=== PATIENT | female | born 1960 | race Caucasian/White ===

== ENCOUNTER 2017-05-17 01:20 | Day surgery (SDC) | payer OTHER ==
[~2017-05-17 01:20] MED LIST: ASPI81CH PO; Adalat/Procardi20 MG PO; Amitriptyline H25 MG PO; B/P MED; CEPH500 PO; CLIN300 PO; FURO40 PO; Fish Oil 10001000 MG PO; HYDCOR2.5B TOP; LEVSOD50 PO; Naprosyn500 MG PO; PROP10 PO; Percocet 5-3251 EACH PO; TOPI25 PO; TOPI50 PO; Valium5 MG PO; [UNRECOGNIZED DRUG - REMARK]
== END 2017-05-17 23:09 | disposition home or self-care (01) ==
LOC: RAD 01:20 → MRI 15:00 → RAD 23:09
PROC: BP39ZZZ Magnetic Resonance Imaging (MRI) of Left Shoulder (ICD-10-PCS; principal; 2017-05-17)
DX: S43.492A Other sprain of left shoulder joint, initial encounter (principal); S46.002A Unspecified injury of muscle(s) and tendon(s) of the rotator cuff of left shoulder, initial encounter
CPT/HCPCS: 23350; 73222; 77002; A9577; Q9967

== ENCOUNTER 2017-06-13 08:13 | Day surgery (SDC) | payer OTHER ==
[~2017-06-13] VITALS: Ht 157.5 cm; Wt 86.5 kg
== END 2017-06-13 14:02 | disposition home or self-care (01) ==
LOC: ORSCSDS 08:13
PROVIDERS: Orthopaedic Surgery
PROC: 0LQ24ZZ Repair Left Shoulder Tendon, Percutaneous Endoscopic Approach (ICD-10-PCS; principal; 2017-06-13 10:45)
DX: S46.002A Unspecified injury of muscle(s) and tendon(s) of the rotator cuff of left shoulder, initial encounter (principal); Z87.891 Personal history of nicotine dependence; E03.9 Hypothyroidism, unspecified; E78.5 Hyperlipidemia, unspecified; Z79.899 Other long term (current) drug therapy
CPT/HCPCS: C1713; J0171; J0690; J1100; J2250; J2370; J2405; J3010; J7120

== ENCOUNTER 2018-08-21 08:48 | Day surgery (SDC) | payer OTHER ==
[~2018-08-21] VITALS: Ht 159 cm; Wt 81.7 kg
[~2018-08-21 08:48] MED LIST changes: +ATOR40TA PO; +CETI5 PO; +POTCHL20ER PO
--- NOTE | 2018-08-21 10:55 | NUR ---
Ambulatory in Day Surgery History, Chart, Medications and Allergies reviewed before start of procedure.Patient confirms NPO status and agrees with scheduled surgery. Patient reports completing Chlorhexadine shower X2 prior to admission to hospital.Surgical site prepped with 2% Chlorhexidine cloth wipe.NOSIN NASAL SWABS DONE
--- NOTE | 2018-08-21 13:11 | NUR ---
08/21/18 1311 Aric Godfrey INTERSCALENE BLOCK DONE BEFORE INDUCTION PER DR. KINSEY. TIME OUT COMPLETED.
--- NOTE | 2018-08-22 04:21 | NUR ---
SHIFT SUMMARY PT A&O X4 T/O SHIFT. POD# 1 L SEPIDEH-SHOULDER; DRESSING CDI. ICE TO SHOULDER PT TOLERATED. NWB LUE; JOYSLING IN PLACE; LIMITED ROM L HAND, PT WIGGLES FINGERS. TOUCH SENSE INTACT, PT REPORTS NUMBNESS TO LUE PRESEANT BUT IMPROVED OVER SHIFT; EXT PWD. PAIN MANAGED PER EMAR. SBA TO TOILET/ASSIST WITH LINES/CHORDS. SCD'S TO BLE'S. CALL LIGHT IN REACH; PT DEMONSTRATES USE. WCTM UNTIL REPORT TO DAY SHIFT RN.
[2018-08-22 04:36] LABS: Anion Gap 10 mmol/L (6-16); Blood Urea Nitrogen 15 mg/dL (8-24); Bun/Creatinine Ratio 19.7 (12.0-20.0); CO2, Blood 13 mmol/L (21-32); Calcium, Blood 8.4 mg/dL (8.5-10.1); Chloride, Blood 117 mmol/L (98-108); Creatinine, Blood 0.76 mg/dL (0.40-1.00); Glomerular Filtration Rate >60 (60-); Glucose, Blood 122 mg/dL (70-99); Potassium, Blood 4.4 mmol/L (3.5-5.5); Sodium, Blood 140 mmol/L (136-145)
[2018-08-22 05:19] LABS: BASOPHILS ABSOLUTE AUTO 0.02 K/mm3 (0.00-0.23); BASOPHILS PERCENT AUTO 0 % (0-2); EOSINOPHILS PERCENT AUTO 0 % (0-6); Hemoglobin 12.6 g/dL (11.5-16.0); IMMATURE GRAN ABSOLUTE AUTO 0.09 K/mm3 (0.00-0.10); IMMATURE GRAN PERCENT AUTO 1 % (0-1); LYMPHOCYTES PERCENT AUTO 8 % (21-46); MONOCYTES ABSOLUTE AUTO 0.92 K/mm3 (0.16-1.47); MONOCYTES PERCENT AUTO 6 % (4-13); Mean Corpuscular HGB 29.3 pg (26.0-34.0); Mean Corpuscular HGB Conc 31.5 g/dL (31.5-36.5); Mean Corpuscular Volume 93 fL (80-100); Mean Platelet Volume 9.8 fL (9.1-12.4); NEUTROPHILS ABSOLUTE AUTO 13.48 K/mm3 (1.96-9.15); NEUTROPHILS PERCENT AUTO 86 % (41-73); Platelet Count 277 K/mm3 (150-400); RDW Coefficient Variation 12.7 % (11.7-14.2); RDW Standard Deviation 42.8 fL (35.1-46.3); White Blood Cell Count 15.71 K/mm3 (4.00-11.30)
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
[2018-08-22] MEDS ORDERED: ASPI325 PO (14:30)
[2018-08-22] MEDS ORDERED: OXYC5 PO (14:33)
--- NOTE | 2018-08-22 15:02 | NUR ---
DISCHARGE PT PROVIDED WITH WRITTEN AND VERBAL DISCHARGE INSTRUCTIONS. SHE REPORTED UNDERSTANDING INSTRUCTIONS AFTER QUESTIONS WERE ANSWERED. DRESSINGS AND SCRIPTS PROVIDED. VSS. WILL MONITOR UNTIL REPORT TO ONCOMING RN.
--- NOTE | 2018-08-22 15:20 | NUR ---
DISCHARGE PT DISCHARGED AT APPROXIMATELY 1515. DISCHARGE INSTRUCTIONS PROVIDED BY SHEREEN GUARDADO.
== END 2018-08-22 15:02 | disposition home or self-care (01) ==
LOC: ORSCMMR 08:48 → ORD 11:15 → ORSCMMR 14:29 → SURS 14:29 → ORSCMMR 14:29 → SURS 15:50 → ORSCMMR 08-22 15:02 → SURS 08-22 15:02
PROVIDERS: Orthopaedic Surgery
PROC: 0RRK0J6 Replacement of Left Shoulder Joint with Synthetic Substitute, Humeral Surface, Open Approach (ICD-10-PCS; principal; 2018-08-21 11:15)
PROC: 0RPK04Z Removal of Internal Fixation Device from Left Shoulder Joint, Open Approach (ICD-10-PCS; principal; 2018-08-21 11:15)
DX: M25.812 Other specified joint disorders, left shoulder (principal); M12.812 Other specific arthropathies, not elsewhere classified, left shoulder; I10 Essential (primary) hypertension; J44.9 Chronic obstructive pulmonary disease, unspecified; E03.9 Hypothyroidism, unspecified; Z87.891 Personal history of nicotine dependence; Z79.899 Other long term (current) drug therapy; Z79.82 Long term (current) use of aspirin; E66.9 Obesity, unspecified; Z68.32 Body mass index [BMI] 32.0-32.9, adult
CPT/HCPCS: 36415; 73030; 80048; 83735; 85025; 88300; 97110; 97162; 97165; 97530; 97535; C1776; J0171; J0690; J0735; J1100; J1885; J2250; J2310; J2370; J2405; J2704; J2710; J2795; J3010; J7120

== ENCOUNTER → 2018-11-01 | Outpatient (CLI) | payer OTHER ==
[~2018-11-01] MED LIST changes: +ASPI325 PO; +OXYC5 PO
== END | disposition home or self-care (01) ==
LOC: LAB SHORT 16:30 → LAB EV 16:30
DX: L98.9 Disorder of the skin and subcutaneous tissue, unspecified (principal)
CPT/HCPCS: 87070; 87205; 87529

== ENCOUNTER 2020-05-29 09:47 | Inpatient (IN) | payer OTHER ==
[~2020-05-29] VITALS: Ht 154.9 cm; Wt 190.8 kg
[~2020-05-29 09:47] MED LIST changes: +ACET325 PO; -ASPI325 PO; +ASPI325EC PO; -ATOR40TA PO; +ATOR80 PO; +Aspirin EC81 MG PO; +LEVSOD25 PO; -LEVSOD50 PO
[2020-05-29 10:34] LABS: BASOPHILS ABSOLUTE AUTO 0.05 K/mm3 (0.00-0.23); BASOPHILS PERCENT AUTO 0 % (0-2); EOSINOPHILS PERCENT AUTO 1 % (0-6); Hematocrit 40.8 % (33.0-51.0); Hemoglobin 13.6 g/dL (11.5-16.0); IMMATURE GRAN ABSOLUTE AUTO 0.07 K/mm3 (0.00-0.10); IMMATURE GRAN PERCENT AUTO 0 % (0-1); LYMPHOCYTES ABSOLUTE AUTO 1.31 K/mm3 (0.84-5.20); LYMPHOCYTES PERCENT AUTO 7 % (21-46); MONOCYTES ABSOLUTE AUTO 1.53 K/mm3 (0.16-1.47); MONOCYTES PERCENT AUTO 9 % (4-13); Mean Corpuscular HGB 27.8 pg (26.0-34.0); Mean Corpuscular HGB Conc 33.3 g/dL (31.5-36.5); Mean Corpuscular Volume 83 fL (80-100); Mean Platelet Volume 9.8 fL (9.1-12.4); NEUTROPHILS ABSOLUTE AUTO 14.63 K/mm3 (1.96-9.15); NEUTROPHILS PERCENT AUTO 83 % (41-73); Platelet Count 441 K/mm3 (150-400); RDW Coefficient Variation 13.5 % (11.7-14.2); RDW Standard Deviation 41.7 fL (35.1-46.3); Red Blood Cell Count 4.89 M/mm3 (3.80-5.20); White Blood Cell Count 17.69 K/mm3 (4.00-11.30)
[2020-05-29 10:52] LABS: Alanine Aminotransfer (ALT/SGP 17 U/L (12-78); Albumin, Blood 3.3 g/dL (3.4-5.0); Albumin/Globulin Ratio 0.7 (0.8-1.8); Alk Phos 102 U/L (50-136); Anion Gap 5 mmol/L (6-16); Aspartate Aminotrans (AST/SGOT 13 U/L (12-37); Bilirubin, Total 0.8 mg/dL (0.1-1.0); Blood Urea Nitrogen 12 mg/dL (8-24); Bun/Creatinine Ratio 16.8 (12.0-20.0); CO2, Blood 26 mmol/L (21-32); Calcium, Blood 8.8 mg/dL (8.5-10.1); Chloride, Blood 104 mmol/L (98-108); Creatinine, Blood 0.72 mg/dL (0.40-1.00); Globulin, Blood 4.7 g/dL (2.2-4.0); Glomerular Filtration Rate >60 (60-); Glucose, Blood 141 mg/dL (70-99); Potassium, Blood 3.9 mmol/L (3.5-5.5); Sodium, Blood 135 mmol/L (136-145)
[2020-05-29 12:10] LABS: Appearance, Urine Clear (Clear); Bilirubin, Urine Neg (Neg); Blood, Urine 2+ (Neg); Color, Urine Yellow (P-Yellow); Glucose Qualitative, Urine Neg (Neg); Ketones, Urine Neg (Neg); Leukocyte Esterase, Urine 1+ (Neg); Nitrite, Urine Neg (Neg); Protein, Urine Neg (Neg); Source, Urine Clean Catch; Specific Gravity, Urine 1.015 (1.003-1.022); Urobilinogen, Urine NORM (Normal)
[2020-05-29 12:27] LABS: Bacteria Rare /hpf; Squamous Epithelial Cells Rare /hpf (Few)
[2020-05-29 12:28] LABS: Granular Casts 0-2 /lpf (0)
[2020-05-29] MEDS ORDERED: FURO40 PO (14:46)
[2020-05-29] MEDS ORDERED: NIFE60ER PO (14:46)
[2020-05-29 15:09] LABS: CHOL/HDL RATIO 3.7; Cholesterol 156 mg/dL (50-200); HDL Cholesterol 42 mg/dL (>39); LDL/HDL RATIO 2.3; Low Density Lipoprotein Chol 95 mg/dL (0-110); Triglycerides 94 mg/dL (30-160); Very Low Density Lipoprot Chol 18 mg/dL (6-32)
--- NOTE | 2020-05-29 15:09 | NUR ---
RECIEVED REPORT FROM KIESHA HALEY RN
--- NOTE | 2020-05-29 15:26 | NUR ---
PATIENT RE-REOUTED FROM ED TO MEDICAL FLOOR TO GO TO IMAGING FOR HIDA SCAN.
[2020-05-30 04:50] LABS: BASOPHILS ABSOLUTE AUTO 0.03 K/mm3 (0.00-0.23); BASOPHILS PERCENT AUTO 0 % (0-2); EOSINOPHILS ABSOLUTE AUTO 0.15 K/mm3 (0.00-0.68); EOSINOPHILS PERCENT AUTO 1 % (0-6); Hematocrit 36.6 % (33.0-51.0); Hemoglobin 11.8 g/dL (11.5-16.0); IMMATURE GRAN ABSOLUTE AUTO 0.03 K/mm3 (0.00-0.10); IMMATURE GRAN PERCENT AUTO 0 % (0-1); LYMPHOCYTES ABSOLUTE AUTO 1.13 K/mm3 (0.84-5.20); LYMPHOCYTES PERCENT AUTO 10 % (21-46); MONOCYTES ABSOLUTE AUTO 1.01 K/mm3 (0.16-1.47); MONOCYTES PERCENT AUTO 9 % (4-13); Mean Corpuscular HGB 27.3 pg (26.0-34.0); Mean Corpuscular HGB Conc 32.2 g/dL (31.5-36.5); Mean Corpuscular Volume 85 fL (80-100); Mean Platelet Volume 9.8 fL (9.1-12.4); NEUTROPHILS ABSOLUTE AUTO 9.38 K/mm3 (1.96-9.15); NEUTROPHILS PERCENT AUTO 80 % (41-73); Platelet Count 333 K/mm3 (150-400); RDW Coefficient Variation 13.5 % (11.7-14.2); RDW Standard Deviation 42.2 fL (35.1-46.3); Red Blood Cell Count 4.32 M/mm3 (3.80-5.20); White Blood Cell Count 11.73 K/mm3 (4.00-11.30)
[2020-05-30 05:09] LABS: Anion Gap 8 mmol/L (6-16); Blood Urea Nitrogen 8 mg/dL (8-24); Bun/Creatinine Ratio 13.1 (12.0-20.0); CO2, Blood 24 mmol/L (21-32); Calcium, Blood 8.3 mg/dL (8.5-10.1); Chloride, Blood 104 mmol/L (98-108); Creatinine, Blood 0.61 mg/dL (0.40-1.00); Glomerular Filtration Rate >60 (60-); Glucose, Blood 84 mg/dL (70-99); Potassium, Blood 3.2 mmol/L (3.5-5.5); Sodium, Blood 136 mmol/L (136-145)
--- NOTE | 2020-05-30 05:36 | NUR ---
SHIFT SUMMARY- PT. A&OX4, PLEASANT AND COOPERATIVE WITH CARE. INDEPENDENT IN ROOM. HAD COMPLAINTS OF ABD PAIN DURING THE NIGHT. MEDICATED 2X PER EMAR WITH GOOD EFFECT. APPEARED TO HAVE RESTED COMFORTABLY T/O THE NIGHT, NO APPARENT DISTRESS NOTED. VSS. CALL LIGHT WITHIN REACH AND SIDE RAILS UPX2. WILL CONT TO MONITOR.
--- NOTE | 2020-05-30 18:20 | NUR ---
PT QUITE PLEASANT TODAY. NO C/O PAIN. DAUGHTER IN TO VISIT TODAY. PT STATES IS HUNGRY, BUT WATER STILL HURTS ABD. PT IS PRESENTLY ONLY SIPPING WATER AND FEW ICE CHIPS. PT IS JOKING AND STATES IV FLUIDS MUST BE HER STEAK AND MASHED POTATOES. ALSO STATES FEELS SOME BETTER TODAY. SLOW IMPROVEMENT. SURGEON WAS IN THIS AFT AND STATES WILL LIKELY NOT NEED SURGICAL INTERVENTION. JUST REST. PT IS AMBULATING SELF TO BATHROOM. STATES IS STEADY AND CAPABLE. NO OTHER CONCERNS NOTED. BED IN LOW POSITION, CALL LITE IN REACH, CALLS APPROP
[2020-05-31 05:22] LABS: BASOPHILS ABSOLUTE AUTO 0.03 K/mm3 (0.00-0.23); BASOPHILS PERCENT AUTO 0 % (0-2); EOSINOPHILS ABSOLUTE AUTO 0.15 K/mm3 (0.00-0.68); EOSINOPHILS PERCENT AUTO 1 % (0-6); Hemoglobin 12.2 g/dL (11.5-16.0); IMMATURE GRAN ABSOLUTE AUTO 0.04 K/mm3 (0.00-0.10); IMMATURE GRAN PERCENT AUTO 0 % (0-1); LYMPHOCYTES ABSOLUTE AUTO 1.15 K/mm3 (0.84-5.20); LYMPHOCYTES PERCENT AUTO 10 % (21-46); MONOCYTES ABSOLUTE AUTO 1.03 K/mm3 (0.16-1.47); MONOCYTES PERCENT AUTO 9 % (4-13); Mean Corpuscular HGB 27.5 pg (26.0-34.0); Mean Corpuscular HGB Conc 32.1 g/dL (31.5-36.5); Mean Corpuscular Volume 86 fL (80-100); Mean Platelet Volume 9.9 fL (9.1-12.4); NEUTROPHILS ABSOLUTE AUTO 9.01 K/mm3 (1.96-9.15); NEUTROPHILS PERCENT AUTO 79 % (41-73); Platelet Count 336 K/mm3 (150-400); RDW Coefficient Variation 13.5 % (11.7-14.2); RDW Standard Deviation 42.5 fL (35.1-46.3); Red Blood Cell Count 4.43 M/mm3 (3.80-5.20); White Blood Cell Count 11.41 K/mm3 (4.00-11.30)
--- NOTE | 2020-05-31 05:37 | NUR ---
SHIFT SUMMARY- PT. C/O PAIN DURING THE NIGHT. MEDICATED PER EMAR WITH GOOD RELIEF. ALSO REPORTS HAVING MULTIPLE EPISODES OF DIARRHEA EARLY THIS AM. REMAINS ON ICE CHIPS AND SIPS OF WATER. NO OTHER NEEDS DURING THE NIGHT. SLEPT ON/OFF LAST NIGHT, VSS. CALL LIGHT WITHIN REACH, WILL CONT TO MONITOR.
[2020-05-31 05:58] LABS: Albumin, Blood 2.5 g/dL (3.4-5.0); Anion Gap 7 mmol/L (6-16); Blood Urea Nitrogen 6 mg/dL (8-24); Bun/Creatinine Ratio 10.7 (12.0-20.0); CO2, Blood 23 mmol/L (21-32); Calcium, Blood 8.7 mg/dL (8.5-10.1); Chloride, Blood 106 mmol/L (98-108); Creatinine, Blood 0.56 mg/dL (0.40-1.00); Glomerular Filtration Rate >60 (60-); Glucose, Blood 62 mg/dL (70-99); Phosphorus, Blood 2.5 mg/dL (2.5-4.9); Potassium, Blood 3.7 mmol/L (3.5-5.5); Sodium, Blood 136 mmol/L (136-145)
--- NOTE | 2020-05-31 09:30 | NUR ---
DR IN ROOM. STATES TO MOVE TO CLEAR LIQUID AND SEE IF TOLERATES.
--- NOTE | 2020-05-31 19:08 | NUR ---
PT QUITE PLEASNT TODAY. STATES HAS TOLERATED CLEAR LIQUID TODAY FAIRLY WELL. SOEM PAIN, BUT LESS. DID CUT FENTANYL IN HALF TO 12.5 MCG TODAY PER PT REQUEST R/T FEELING DIZZY AND WOOZY WITH 25 MCG DOSE. PT STATES DID WELL FOR PAIN COVERAGE AND FELT MUCH BETTER. REQUESTED PT TO ASK FOR HALF DOSE IF FEELS IT WILL WORK WELL. NO NEW CONCERNS NOTED TODAY. DID KHAVE DAUGHTER IN TO VISIT TODAY. BED IN LOW POSITION,C ALL LITE IN REACH, CALLS APROP
[2020-06-01 05:05] LABS: BASOPHILS ABSOLUTE AUTO 0.04 K/mm3 (0.00-0.23); BASOPHILS PERCENT AUTO 0 % (0-2); EOSINOPHILS ABSOLUTE AUTO 0.16 K/mm3 (0.00-0.68); EOSINOPHILS PERCENT AUTO 2 % (0-6); Hematocrit 38.1 % (33.0-51.0); Hemoglobin 12.4 g/dL (11.5-16.0); IMMATURE GRAN ABSOLUTE AUTO 0.03 K/mm3 (0.00-0.10); IMMATURE GRAN PERCENT AUTO 0 % (0-1); LYMPHOCYTES ABSOLUTE AUTO 1.49 K/mm3 (0.84-5.20); LYMPHOCYTES PERCENT AUTO 15 % (21-46); MONOCYTES ABSOLUTE AUTO 0.91 K/mm3 (0.16-1.47); MONOCYTES PERCENT AUTO 9 % (4-13); Mean Corpuscular HGB 27.6 pg (26.0-34.0); Mean Corpuscular HGB Conc 32.5 g/dL (31.5-36.5); Mean Corpuscular Volume 85 fL (80-100); Mean Platelet Volume 9.9 fL (9.1-12.4); NEUTROPHILS ABSOLUTE AUTO 7.42 K/mm3 (1.96-9.15); NEUTROPHILS PERCENT AUTO 74 % (41-73); Platelet Count 378 K/mm3 (150-400); RDW Coefficient Variation 13.6 % (11.7-14.2); RDW Standard Deviation 42.4 fL (35.1-46.3); White Blood Cell Count 10.05 K/mm3 (4.00-11.30)
--- NOTE | 2020-06-01 05:23 | NUR ---
SHIFT SUMMARY- NO ACUTE EVENTS OVERNIGHT. MEDICATED PT. FOR ABD PAIN MULTIPLE TIMES T/O THE NIGHT WITH GOOD EFFECT. PT. ON CL DIET, TOLERATING WELL. AMBULATES FREQUENTLY IN ROOM W/O DIFFICULTY. DENIED ANY OTHER NEEDS DURING THE NIGHT, VSS. CALL LIGHT WITHIN REACH AND SIDE RAILS UPX2. WILL CONT TO MONITOR.
--- NOTE | 2020-06-01 11:02 | NUR ---
OK TO CHANGE FENTANYL TO 12.5 -[address] STUART.
--- NOTE | 2020-06-01 14:04 | NUR ---
Patient is sitting up in bed and alert. Patient talks about her medical history, her current smyptoms and the plan going forward. Patient tells me that [facility] and that there are many things that she wishes could be better in her life. She tells me her many frustrations and also her drive to keep moving forward in life. I reinforce helpful attitudes and practices and provide therapeutic listening, pastoral counselor dormitory and prayer. Patietn responds well and shows signs of increased peace. Spiritual care will continue to remain available to patient and family.
--- NOTE | 2020-06-01 17:18 | NUR ---
ALERT. DIET SWITCHED TO FULL LIQUID AND TOLERATED FOR LUNCH. STS HAD SOME NAUSEA WHEN IN THE SHOWER AND WOULD LIKE TO STAY ON FULL LIQUID FOR DINNER. MEDICATED FOR PAIN WITH GOOD RESULTS. INDEPENDENT IN ROOM. TELE HAS BEEN SR.LR INFUSING AT 75 ML/HR. COOPERATIVE. PLEASANT. ABLE TO MAKE HER NEEDS KNOWN. POSSIBLE D'C TOMORROW. WCTM
--- NOTE | 2020-06-02 04:40 | NUR ---
PRINCIPAL GIFTS OFFICER SUMMARY NO ACUTE CHANGES THIS SHIFT. PT AAOX4 AND INDEPENDENT IN THE ROOM. DENIES NAUSEA BUT DOES STILL REPORT SOME ABD PAIN. MEDICATED WITH 25 MCG IV FENTANYL X2 THROUGH THE SHIFT WHICH PT STATES DOES HELP THE PAIN AND ALLOWS HER TO SLEEP. PT SEEMS NERVOUS ABOUT EATING ANYTHING BEYOND A FULL LIQUID DIET AT THIS POINT. VSS, WILL CONTINUE TO MONITOR.
[2020-06-02] MEDS ORDERED: ACET325 PO (11:40)
--- NOTE | 2020-06-02 12:21 | NUR ---
PT DISCHARGED AT 1215 WITH ALL PAPERWORK REVIEWED AND EDUCATIONAL MATERIAL SENT. PT TREATED FOR PAIN PER EMAR. INDEPENDENT IN ROOM NO DISTRESS NOTED. PT COLLECTED PERSONAL BELONINGS. ESCORTED OUT VIA WHEELCHAIR. DAUGHTER TO TRANSPORT HOME.
--- NOTE | 2020-06-02 12:53 | NUR ---
Patient tells me about her DC that will be soon. She then tells me about her father who has dementia, her son who hasn't spoken to her in 15 yrs and how her physical limitations have interfered with her being able to move forward in life. Patient talks about her spiritual journey and her struggle to find a advent that she feels comfortable in. I listen empathically, explore sources of value and meaning and provide emotional support, and prayer. Patient responds well and shows signs of empowerment. I also make suggestions about possible advent choices.
== END 2020-06-02 12:14 | disposition home or self-care (01) | DRG 439 ==
LOC: ER 09:47 → MEDS 13:57
PROVIDERS: Emergency Medicine; ADMIT Family Medicine
DX: K85.80 Other acute pancreatitis without necrosis or infection (principal); E87.1 Hypo-osmolality and hyponatremia; E87.6 Hypokalemia; E03.9 Hypothyroidism, unspecified; I10 Essential (primary) hypertension; E78.5 Hyperlipidemia, unspecified; E16.2 Hypoglycemia, unspecified; Z79.82 Long term (current) use of aspirin; Z87.891 Personal history of nicotine dependence
CPT/HCPCS: 36415; 74181; 76705; 78226; 80048; 80053; 80061; 80069; 81001; 83690; 84484; 85025; 87086; 93005; 93010; 96365; 96366; 99285-25; A9270; A9270-GY; A9537; J0696; J1170; J1650; J2543; J3010; J7030; J7120

== ENCOUNTER 2020-08-12 10:59 | Emergency (ER) | payer OTHER ==
[~2020-08-12] VITALS: Ht 154.9 cm; Wt 81.7 kg
[~2020-08-12 10:59] MED LIST changes: +NIFE60ER PO
[2020-08-12 12:15] LABS: BASOPHILS ABSOLUTE AUTO 0.04 K/mm3 (0.00-0.23); BASOPHILS PERCENT AUTO 0 % (0-2); EOSINOPHILS ABSOLUTE AUTO 0.14 K/mm3 (0.00-0.68); EOSINOPHILS PERCENT AUTO 1 % (0-6); Hematocrit 48.4 % (33.0-51.0); IMMATURE GRAN ABSOLUTE AUTO 0.02 K/mm3 (0.00-0.10); IMMATURE GRAN PERCENT AUTO 0 % (0-1); LYMPHOCYTES ABSOLUTE AUTO 1.23 K/mm3 (0.84-5.20); LYMPHOCYTES PERCENT AUTO 13 % (21-46); MONOCYTES ABSOLUTE AUTO 0.73 K/mm3 (0.16-1.47); MONOCYTES PERCENT AUTO 8 % (4-13); Mean Corpuscular HGB 26.7 pg (26.0-34.0); Mean Corpuscular Volume 86 fL (80-100); Mean Platelet Volume 9.8 fL (9.1-12.4); NEUTROPHILS ABSOLUTE AUTO 7.55 K/mm3 (1.96-9.15); NEUTROPHILS PERCENT AUTO 78 % (41-73); Platelet Count 500 K/mm3 (150-400); RDW Coefficient Variation 13.6 % (11.7-14.2); RDW Standard Deviation 43.5 fL (35.1-46.3); Red Blood Cell Count 5.61 M/mm3 (3.80-5.20); White Blood Cell Count 9.71 K/mm3 (4.00-11.30)
[2020-08-12 12:28] LABS: Alanine Aminotransfer (ALT/SGP 32 U/L (12-78); Albumin/Globulin Ratio 0.7 (0.8-1.8); Alk Phos 72 U/L (50-136); Anion Gap 6 mmol/L (6-16); Aspartate Aminotrans (AST/SGOT 24 U/L (12-37); Bilirubin, Total 0.3 mg/dL (0.1-1.0); Blood Urea Nitrogen 11 mg/dL (8-24); Bun/Creatinine Ratio 16.4 (12.0-20.0); CO2, Blood 24 mmol/L (21-32); Calcium, Blood 8.8 mg/dL (8.5-10.1); Chloride, Blood 111 mmol/L (98-108); Creatinine, Blood 0.67 mg/dL (0.40-1.00); Globulin, Blood 4.4 g/dL (2.2-4.0); Glomerular Filtration Rate >60 (60-); Glucose, Blood 142 mg/dL (70-99); Potassium, Blood 3.5 mmol/L (3.5-5.5); Sodium, Blood 141 mmol/L (136-145); Total Protein, Blood 7.4 g/dL (6.4-8.2)
[2020-08-12] MEDS ORDERED: DICY20 PO (14:04)
== END 2020-08-12 14:16 | disposition home or self-care (01) ==
LOC: ER 10:59
PROVIDERS: Physician Assistant
DX: R10.10 Upper abdominal pain, unspecified (principal); Z79.82 Long term (current) use of aspirin; Z79.899 Other long term (current) drug therapy; Z87.891 Personal history of nicotine dependence
CPT/HCPCS: 36415; 80053; 83690; 85025; 99283; A9270

== ENCOUNTER 2020-08-20 07:51 | Emergency (ER) | payer OTHER ==
[~2020-08-20] VITALS: Ht 154.9 cm; Wt 91.2 kg
[~2020-08-20 07:51] MED LIST changes: +DICY20 PO
[2020-08-20 08:25] LABS: BASOPHILS ABSOLUTE AUTO 0.06 K/mm3 (0.00-0.23); BASOPHILS PERCENT AUTO 0 % (0-2); EOSINOPHILS ABSOLUTE AUTO 0.11 K/mm3 (0.00-0.68); EOSINOPHILS PERCENT AUTO 1 % (0-6); Hematocrit 48.3 % (33.0-51.0); Hemoglobin 15.2 g/dL (11.5-16.0); IMMATURE GRAN ABSOLUTE AUTO 0.06 K/mm3 (0.00-0.10); IMMATURE GRAN PERCENT AUTO 0 % (0-1); LYMPHOCYTES ABSOLUTE AUTO 1.45 K/mm3 (0.84-5.20); LYMPHOCYTES PERCENT AUTO 10 % (21-46); MONOCYTES ABSOLUTE AUTO 1.21 K/mm3 (0.16-1.47); MONOCYTES PERCENT AUTO 8 % (4-13); Mean Corpuscular HGB Conc 31.5 g/dL (31.5-36.5); Mean Corpuscular Volume 86 fL (80-100); Mean Platelet Volume 9.4 fL (9.1-12.4); NEUTROPHILS ABSOLUTE AUTO 11.84 K/mm3 (1.96-9.15); NEUTROPHILS PERCENT AUTO 81 % (41-73); Platelet Count 762 K/mm3 (150-400); RDW Coefficient Variation 13.7 % (11.7-14.2); RDW Standard Deviation 43.5 fL (35.1-46.3); Red Blood Cell Count 5.63 M/mm3 (3.80-5.20); White Blood Cell Count 14.73 K/mm3 (4.00-11.30)
[2020-08-20 08:41] LABS: Alanine Aminotransfer (ALT/SGP 20 U/L (12-78); Albumin, Blood 2.9 g/dL (3.4-5.0); Albumin/Globulin Ratio 0.6 (0.8-1.8); Alk Phos 83 U/L (50-136); Anion Gap 6 mmol/L (6-16); Aspartate Aminotrans (AST/SGOT 17 U/L (12-37); Bilirubin, Total 0.4 mg/dL (0.1-1.0); Blood Urea Nitrogen 15 mg/dL (8-24); Bun/Creatinine Ratio 19.9 (12.0-20.0); CO2, Blood 23 mmol/L (21-32); Calcium, Blood 9.1 mg/dL (8.5-10.1); Chloride, Blood 105 mmol/L (98-108); Creatinine, Blood 0.75 mg/dL (0.40-1.00); Globulin, Blood 4.6 g/dL (2.2-4.0); Glomerular Filtration Rate >60 (60-); Glucose, Blood 99 mg/dL (70-99); Sodium, Blood 134 mmol/L (136-145); Total Protein, Blood 7.5 g/dL (6.4-8.2)
[2020-08-20 11:08] LABS: International Normalized Ratio 1.07; Prothrombin Time Results 11.5 Sec (9.7-11.5)
== END 2020-08-20 11:40 | disposition home or self-care (01) ==
LOC: ER 07:51
PROVIDERS: Physician Assistant
DX: R18.8 Other ascites (principal); R10.11 Right upper quadrant pain; I10 Essential (primary) hypertension; Z91.040 Latex allergy status; Z79.899 Other long term (current) drug therapy; Z79.82 Long term (current) use of aspirin; Z87.891 Personal history of nicotine dependence
CPT/HCPCS: 36415; 74177; 76705; 80053; 83690; 83880; 85025; 85610; 85730; 93005; 93010; 96361; 96374; 96375; 99284-25; J1170; J2405; J7030; Q9967

== ENCOUNTER 2020-08-21 15:46 | Inpatient (IN) | payer OTHER ==
[~2020-08-21] VITALS: Ht 154.9 cm; Wt 91.4 kg
[2020-08-21 20:01] LABS: BASOPHILS ABSOLUTE AUTO 0.02 K/mm3 (0.00-0.23); BASOPHILS PERCENT AUTO 0 % (0-2); EOSINOPHILS PERCENT AUTO 0 % (0-6); Hematocrit 45.1 % (33.0-51.0); Hemoglobin 14.2 g/dL (11.5-16.0); IMMATURE GRAN ABSOLUTE AUTO 0.06 K/mm3 (0.00-0.10); IMMATURE GRAN PERCENT AUTO 0 % (0-1); LYMPHOCYTES ABSOLUTE AUTO 1.06 K/mm3 (0.84-5.20); LYMPHOCYTES PERCENT AUTO 7 % (21-46); MONOCYTES ABSOLUTE AUTO 0.99 K/mm3 (0.16-1.47); MONOCYTES PERCENT AUTO 6 % (4-13); Mean Corpuscular HGB 26.6 pg (26.0-34.0); Mean Corpuscular HGB Conc 31.5 g/dL (31.5-36.5); Mean Corpuscular Volume 85 fL (80-100); Mean Platelet Volume 9.4 fL (9.1-12.4); NEUTROPHILS ABSOLUTE AUTO 13.72 K/mm3 (1.96-9.15); NEUTROPHILS PERCENT AUTO 87 % (41-73); Platelet Count 680 K/mm3 (150-400); RDW Coefficient Variation 13.9 % (11.7-14.2); Red Blood Cell Count 5.33 M/mm3 (3.80-5.20); White Blood Cell Count 15.85 K/mm3 (4.00-11.30)
[2020-08-21 20:20] LABS: Alanine Aminotransfer (ALT/SGP 16 U/L (12-78); Albumin, Blood 2.7 g/dL (3.4-5.0); Albumin/Globulin Ratio 0.6 (0.8-1.8); Alk Phos 78 U/L (50-136); Anion Gap 15 mmol/L (6-16); Aspartate Aminotrans (AST/SGOT 13 U/L (12-37); Bilirubin, Total 0.4 mg/dL (0.1-1.0); Blood Urea Nitrogen 15 mg/dL (8-24); Bun/Creatinine Ratio 18.9 (12.0-20.0); CO2, Blood 17 mmol/L (21-32); Calcium, Blood 9.2 mg/dL (8.5-10.1); Chloride, Blood 104 mmol/L (98-108); Creatinine, Blood 0.79 mg/dL (0.40-1.00); Globulin, Blood 4.8 g/dL (2.2-4.0); Glomerular Filtration Rate >60 (60-); Glucose, Blood 116 mg/dL (70-99); Potassium, Blood 4.5 mmol/L (3.5-5.5); Sodium, Blood 136 mmol/L (136-145); Total Protein, Blood 7.5 g/dL (6.4-8.2)
[2020-08-21 22:31] LABS: Source, Urine Clean Catch
[2020-08-21 22:34] LABS: Blood, Urine 1+ (Neg); Glucose Qualitative, Urine Neg (Neg); Ketones, Urine 4+ (Neg); Leukocyte Esterase, Urine 1+ (Neg); Nitrite, Urine Neg (Neg); Protein, Urine 2+ (Neg); Specific Gravity, Urine 1.025 (1.003-1.022); Urobilinogen, Urine NORM (Normal)
[2020-08-21 22:45] LABS: Appearance, Urine Hazy (Clear); Bilirubin, Urine 1+ (Neg); Color, Urine Yellow (P-Yellow)
[2020-08-21 22:46] LABS: Amorphous Light (0-Heavy); Bacteria Mod /hpf; Hyaline Casts 25-50 /lpf (0-2); Red Blood Cells, Urine 0-2 /hpf (0-2); Squamous Epithelial Cells Few /hpf (Few); White Blood Cells, Urine 25-50 /hpf (0-5)
[2020-08-21 23:17] LABS: Automated BF RBC Count 0.002 M/mm3 (0-0); Automated BF WBC Count 1.571 K/mm3 (0-999); Body Fluid WBC Count 1571 /mm3 (0-999)
[2020-08-21 23:48] LABS: Appearance, Body Fluid Cloudy (Clear); Color, Body Fluid Yellow (None-Yellow)
[2020-08-21 23:49] LABS: Total Cell Count, Body Fluid 100
[2020-08-22 00:42] LABS: Glucose, Body Fluid 83 mg/dL; Lactate Dehydrogenase, Body Fl 412 U/L
[2020-08-22 06:30] LABS: Alanine Aminotransfer (ALT/SGP 19 U/L (12-78); Albumin, Blood 2.4 g/dL (3.4-5.0); Albumin/Globulin Ratio 0.6 (0.8-1.8); Alk Phos 68 U/L (50-136); Anion Gap 10 mmol/L (6-16); Aspartate Aminotrans (AST/SGOT 12 U/L (12-37); Bilirubin, Total 0.3 mg/dL (0.1-1.0); Blood Urea Nitrogen 14 mg/dL (8-24); Bun/Creatinine Ratio 20.8 (12.0-20.0); CO2, Blood 21 mmol/L (21-32); Calcium, Blood 8.5 mg/dL (8.5-10.1); Chloride, Blood 107 mmol/L (98-108); Creatinine, Blood 0.67 mg/dL (0.40-1.00); Globulin, Blood 4.2 g/dL (2.2-4.0); Glomerular Filtration Rate >60 (60-); Glucose, Blood 121 mg/dL (70-99); Potassium, Blood 4.5 mmol/L (3.5-5.5); Sodium, Blood 138 mmol/L (136-145); Total Protein, Blood 6.6 g/dL (6.4-8.2)
--- NOTE | 2020-08-22 12:59 | NUR ---
PT ARRIVED TO ROOM PCU 4 AT ABOUT 1200. PT IS A/O X4, SBA IN ROOM. USING 3L O2 NC TO MAINAIN O2 SAT ABOVE 92%. PROVIDER IN TO SEE PT. PT UP TO BATHROOM WITH SBA.
--- NOTE | 2020-08-22 14:12 | NUR ---
Attempted a PC visit with pt as requested by nursing. Entered room and introduced myself. Pt has a visitor at bedside. Offered to come back at a better time to discuss advanced care planning and pt in agreement so she can visit. Will plan to return tomorrow to address advanced care planning.
[2020-08-22 16:25] LABS: Alpha Feto Protein, Tumor Mkr 2.1 ng/mL (0.0-8.0)
--- NOTE | 2020-08-22 17:02 | NUR ---
NOTIFIED PHYSICIAN OF HR 100'S WHILE RESTING, UP TO 130'S WHILE AMBULATING. NO NEW ORDERS. ALSO NOTIFIED OF SMALL AMNT COFFEE GROUND COLOR EMESIS.
--- NOTE | 2020-08-22 17:44 | NUR ---
SHIFT SUMMARY PT ADMITTED TODAY TO PCU. PT IS A/O X4, IND/SBA IN ROOM. SHE IS USING 3L O2 NC TO MAINTAIN O2 SAT ABOVE 92%. SHE DENIES SOB AT REST, BUT DOES C/O SOB WITH EXERTION. HR HAS BEEN TACHY; 90-100'S AT REST, UP TO 130'S-140'S WITH EXERTION; PROVIDER AWARE, TELE ON. PT HAS BEEN RESTING MOST OF THE DAY SINCE ADMIT. PLAN IS TO HAVE PARACENTESIS IN MORNING.
--- NOTE | 2020-08-22 19:22 | NUR ---
ASSUMED CARE. PATIENT LAYING IN BED, NO NEED REQUESRED. SEE [facility] FOR FULL SHIFT ASSESSMENT
[2020-08-23 02:05] LABS: Hematocrit 39.9 % (33.0-51.0); Hemoglobin 12.6 g/dL (11.5-16.0); Mean Corpuscular HGB 26.9 pg (26.0-34.0); Mean Corpuscular HGB Conc 31.6 g/dL (31.5-36.5); Mean Corpuscular Volume 85 fL (80-100); Mean Platelet Volume 9.3 fL (9.1-12.4); Platelet Count 550 K/mm3 (150-400); RDW Coefficient Variation 14.2 % (11.7-14.2); RDW Standard Deviation 44.2 fL (35.1-46.3); Red Blood Cell Count 4.68 M/mm3 (3.80-5.20); White Blood Cell Count 13.57 K/mm3 (4.00-11.30)
[2020-08-23 02:22] LABS: Albumin, Blood 2.2 g/dL (3.4-5.0); Anion Gap 7 mmol/L (6-16); Blood Urea Nitrogen 12 mg/dL (8-24); CHOL/HDL RATIO 3.7; CO2, Blood 23 mmol/L (21-32); Calcium, Blood 8.7 mg/dL (8.5-10.1); Chloride, Blood 109 mmol/L (98-108); Cholesterol 144 mg/dL (50-200); Creatinine, Blood 0.63 mg/dL (0.40-1.00); Glomerular Filtration Rate >60 (60-); Glucose, Blood 108 mg/dL (70-99); HDL Cholesterol 39 mg/dL (>39); LDL/HDL RATIO 1.9; Low Density Lipoprotein Chol 73 mg/dL (0-110); Phosphorus, Blood 2.6 mg/dL (2.5-4.9); Potassium, Blood 4.5 mmol/L (3.5-5.5); Sodium, Blood 139 mmol/L (136-145); Triglycerides 160 mg/dL (30-160); Very Low Density Lipoprot Chol 32 mg/dL (6-32)
[2020-08-23 08:13] LABS: Hematocrit 42.5 % (33.0-51.0); Hemoglobin 13.1 g/dL (11.5-16.0)
[2020-08-23 08:16] LABS: COMPLEMENT C3, SERUM 181 mg/dL (82-167); COMPLEMENT C4, SERUM 26 mg/dL (12-38); HBSAG SCREEN Negative (Negative); HEP A AB, IGM Negative (Negative); HEP B CORE AB, IGM Negative (Negative); HEP C VIRUS AB 0.2 (0.0-0.9)
--- NOTE | 2020-08-23 10:44 | NUR ---
Initial palliative care consult: Yajaira is a 59 year old with a history of hypothyroidism, HTN, HLD, pancreatitis with biliary sludge, migraines. She was admittd to [facility] on 08/22/20 for c/o abd pain, swelling, N/V for the past week. She has a history of ETOH, no ETOH use since 2012. She is currently living at the local long term, she has been there off and on since 2013. Her PCP is [facility]zane[facility]. She is scheduled for a paracentesis today. Her abd is very swollen, firm and tender to touch. She reports a 20 pound weight gain of the past several weeks. She has never had ascites like this before. She is awaiting a GI consult. She reports SOB from the abd distention and overall just being "uncomfortable." Explained the paracentesis procedure and that she may need to receive albumin afterwards depending on how much fluid is removed. Pt vertalizes understanding. She had an emesis earlier today. She reports that she gets a sudden burn and then vomits. No c/o nausea during my visit. Nursing requested a PC visit for Yajaira to discuss her code status. Discussed POLST form and options for care with Yajaira. She is very clear that she wishes to be a DNR with limited interventions. She would like to be an organ donor. She states that her dtr, Socorro, and her step-mom, Gisela, would be her alternate health care decision makers. She reports her father, Melvin, has dementia and isn't able to make any decisions for her. Left AD booklet on her bedside table after reviewing it with her. She reports her dtr will be in this afternoon and they will talk about her wishes. Encouraged Yajaira to ask nursing to contact PC if they need assistance with AD or have further questions. LM for Dr. Guzman re: pt's wishes to change code status to DNR and to sign the POLST form when she makes rounds today. Ann, pt's nurse, also updated on her decision of DNR. PC to follow up to make sure DNR order is placed. Will process POLST once signed by
[2020-08-23 13:04] LABS: Automated BF RBC Count 0.002 M/mm3 (0-0); Automated BF WBC Count 1.808 K/mm3 (0-999); Body Fluid WBC Count 1808 /mm3 (0-999)
[2020-08-23 13:13] LABS: Appearance, Body Fluid Hazy (Clear); Color, Body Fluid Yellow (None-Yellow)
[2020-08-23 13:21] LABS: Lactate Dehydrogenase, Body Fl 813 U/L
[2020-08-23 13:23] LABS: Albumin, Body Fluid 2.4 g/dL
[2020-08-23 13:24] LABS: Protein, Body Fluid 4.8 g/dL
[2020-08-23 13:28] LABS: Glucose, Body Fluid 89 mg/dL
[2020-08-23 13:31] LABS: RBC Count, Body Fluid 1008 /mm3 (0-0)
[2020-08-23 13:43] LABS: Total Cell Count, Body Fluid 100
[2020-08-23 14:12] LABS: Hematocrit 42.4 % (33.0-51.0); Hemoglobin 13.1 g/dL (11.5-16.0)
--- NOTE | 2020-08-23 17:42 | NUR ---
SHIFT SUMMARY PT IS ALERT AND ORIENTED. PT WAS ABLE TO SHOWER INDEPENDENTLY TODAY. PT HAS BEEN WEANED OFF OF 02 AND IS NOW ON RA. VS STABLE. PT ABLE TO USE THE BATHROOM INDEPENDENTLY. PT HAD A PARACENTESIS TODAY AND HAD 4L REMOVED BUT NO ALBUMIN REPLACEMENT. PT WAS VOMITTING THIS MORNING BUT IT HAS RESOLVED AFTER THE PARACENTESIS. PT HAS BEEN VISITING WITH HER DAUGHTER WHILE HAVING DINNER THIS EVENING
[2020-08-23 18:10] LABS: ANTI-DSDNA ANTIBODIES <1 IU/mL (0-9); RNP ANTIBODIES <0.2 AI (0.0-0.9); SJOGREN'S ANTI-SS-A <0.2 AI (0.0-0.9); SJOGREN'S ANTI-SS-B <0.2 AI (0.0-0.9); SMITH ANTIBODIES <0.2 AI (0.0-0.9)
[2020-08-24 04:15] LABS: Hematocrit 41.5 % (33.0-51.0); Hemoglobin 12.9 g/dL (11.5-16.0); Mean Corpuscular HGB 26.4 pg (26.0-34.0); Mean Corpuscular HGB Conc 31.1 g/dL (31.5-36.5); Mean Corpuscular Volume 85 fL (80-100); Mean Platelet Volume 9.7 fL (9.1-12.4); Platelet Count 579 K/mm3 (150-400); RDW Standard Deviation 43.4 fL (35.1-46.3); Red Blood Cell Count 4.89 M/mm3 (3.80-5.20); White Blood Cell Count 10.69 K/mm3 (4.00-11.30)
[2020-08-24 04:38] LABS: Alanine Aminotransfer (ALT/SGP 17 U/L (12-78); Albumin/Globulin Ratio 0.5 (0.8-1.8); Alk Phos 61 U/L (50-136); Anion Gap 4 mmol/L (6-16); Aspartate Aminotrans (AST/SGOT 23 U/L (12-37); Bilirubin, Total 0.2 mg/dL (0.1-1.0); Blood Urea Nitrogen 10 mg/dL (8-24); Bun/Creatinine Ratio 15.6 (12.0-20.0); CO2, Blood 27 mmol/L (21-32); Calcium, Blood 8.4 mg/dL (8.5-10.1); Chloride, Blood 108 mmol/L (98-108); Creatinine, Blood 0.64 mg/dL (0.40-1.00); Globulin, Blood 3.8 g/dL (2.2-4.0); Glomerular Filtration Rate >60 (60-); Glucose, Blood 112 mg/dL (70-99); Potassium, Blood 3.9 mmol/L (3.5-5.5); Sodium, Blood 139 mmol/L (136-145); Total Protein, Blood 5.8 g/dL (6.4-8.2)
--- NOTE | 2020-08-24 05:17 | NUR ---
SHIFT SUMMARY ASSUMED CARE OF PT AT 1900. PT IS A/OX4. HEART SOUNDS REGULAR, TELE SHOWS SINUS. LUNG SOUNDS CLEAR, PT REMIAINED ON RA DURING THE NIGHT, DID NOT COMPLAIN OF SOB. ABD IS SOFT BUT TENDER, PT STATES THAT SHE IS FEELING BETTER. PT WAS INDEPENDENT TO THE BATHROOM. CALL LIGHT IN REACH, BED IN LOWEST POSTION.
--- NOTE | 2020-08-24 12:10 | NUR ---
Fully signed and completed POLST provided to medical records for scanning into EMR.
--- NOTE | 2020-08-24 18:16 | NUR ---
SHIFT SUMMARY PT HAS BEEN INDEPENDENT IN THE ROOM TODAY. PT HAS HAD LOOSE STOOL TODAY THAT HAS BEEN A DARK GREEN COLOR. PT HAS A GI CONSULT IN PLACE. PT HAS NO LONGER HAD ANY COFFEE GROUND EMESIS SINCE THE PARACENTESIS YESTERDAY 08/23/20. PT HAS HAD SOME PAIN/SORENESS ON HER SIDE WHERE THE PARCENTESIS WAS COMPLETED YESTERDAY. OTHERWISE, PT HAS BEEN STABLE. PT HAS BEEN TAKEN OFF OF TELE AND CHANGED TO MEDICAL STATUS. PT IS RESTING IN BED AT THIS TIME
--- NOTE | 2020-08-24 19:48 | NUR ---
PT RESTING IN LOW SEMI FOWLERS POSITION IN BED, WATCHING TV. PT REPORTS SHE IS [place] IN HER LEFT EAR. PT'S ONLY COMPLAINT IS RIGHT SIDED ABDOMINAL PAIN WHEN SHE GETS UP OUT OF BED. PT DENIES HEADACHE, CHEST PAIN, NAUSEA OR EMESIS, SOB, OR NUMBNESS AND TINGLING. PT REPORTS SHE HAS HAD SEVERAL LOOSE STOOLS TODAY. PT'S URINE IS CLOUDY YELLOW. L AC IV FLUSHED WITHOUT DIFFICULTY. PT IS SCHEDULED FOR AN MRI WITHOUT CONTRAST IN AM - SEE ORDER. FLUIDS AT BEDSIDE. BED IN LOW POSITION. CALL LIGHT WITHIN REACH.
--- NOTE | 2020-08-24 22:24 | NUR ---
UPDATED PT, AND PLACED NOTE ON SIDE OF PT'S DOOR - PT IS ON CLEAR LIQUID DIET IN AM, THEN NPO.
--- NOTE | 2020-08-25 | NUR ---
CALLED [place], LAB - SHE WILL CHECK WITH PRESIDENT [employer] CEO [employer] TO SEE IF THEY CAN ADD AMYLASE, AND TRIGLYCERIDES TO YESTERDAY'S ASCITIES FLUID.
--- NOTE | 2020-08-25 00:10 | NUR ---
REPORT GIVEN TO [facility] - SURGICAL FLOOR.
--- NOTE | 2020-08-25 00:35 | NUR ---
PT TX FROM PCU 4. PT A/O, VSS. LUNGS CLEAR, DIM IN BASES. PT DENIES SOB, REP WOB IMPROVED SINCE PARACENTESIS 08/23. PT REP MILD ABD DISCOMFORT, DENIES CHANGES IN PAIN, ABD SOFT/NON TEMDER TO PALP. PT ORIENTED TO ROOM/CALL LIGHT. PT REQ TO GL TO SLEEP FOR NIGHT. WILL MONITOR AND TX PER ORDERS.
[2020-08-25 01:11] LABS: Amylase, Body Fluid 61 U/L; Triglycerides, Body Fluid 76 mg/dL
--- NOTE | 2020-08-25 06:16 | NUR ---
PT VSS, SATS >90% ON RA. PT IS NOTED TO BECOME SOB W/EXERTION, DENIES SOB AT REST. PT DENIED PAIN THIS AM, NO C/O N/V. PT INDEP IN ROOM. PLAN NPO AFTER BREAKFAST AND FOR FOR MRI THIS AM.
[2020-08-25 06:49] LABS: SARS-Cov-2 (COVID-19) PCR, MMC NEGATIVE (NEGATIVE)
--- NOTE | 2020-08-25 15:05 | NUR ---
[facility]
--- NOTE | 2020-08-25 15:23 | NUR ---
08/25/20 1523 Tevin Cam History, Chart, Medications and Allergies reviewed before start of procedure.MONITOR INTACT WITH CONTINUOUS PULSE OXIMETRY AND INTERMITTENT BP.3-LEAD EKG REVIEWED WITH PHYSICIAN PRIOR TO START OF PROCEDURE.O2 VIA N/C INTACT THROUGHOUT SEDATION/PROCEDURE. See Anesthesia record.
--- NOTE | 2020-08-25 16:45 | NUR ---
POST SCOPE ARRIVAL TO ROOM PT IS ABLE TO STAND W/ SBA TO WALK TO BED. 3L NC IN PLACE. AUDIBLE FAINT WHEEZES TO UPPER AIRWAY. R SIDE LUNG SOUNDS DIM IN BASE. L SIDE LUNG SOUNDS COURSE W/ EXP WHEEZE TO UPPER & LOWER LUNGS. NO DYSPNEA W/ EXC FROM AMBULATING TO BED. DENIES PAIN OR N/V.
--- NOTE | 2020-08-26 07:38 | NUR ---
PT VSS T/O NIGHT, 2LO2 NC PLACED WHEN PT SLEEPING. PT APPEARS MORE DYPSNEIC THIS AM. PT REP ABD MORE PAINFUL THIS AM, MED W/TYLENOL PER PT REQ. PT NPO FOR PLAN FOR REPEAT EGD THIS AM.
--- NOTE | 2020-08-26 16:55 | NUR ---
BROUGHT TO [facility] ADMISSION TO UNIT STARTED.
--- NOTE | 2020-08-26 17:50 | NUR ---
RETURNED TO ROOM. EGD BUMPED UNTIL TOMORROW.
--- NOTE | 2020-08-26 19:34 | NUR ---
SHIFT SUMMARY PT HAD PARACENTESIS, 2.5 L REMOVED. ALBUMIN GIVEN POST-PROCEDURE. WAS TAKEN TO DAY SURGERY FOR EGD AFTER BEING NPO ALL DAY, BUT PROCEDURE WAS POST PONED DUE TO EMERGENCY NEED FOR OR. CLEAR LQS GIVEN PER DR ALEJANDRO.
--- NOTE | 2020-08-27 04:49 | NUR ---
SHIFT SUMMARY PT RESTED WELL T/O NIGHT. AAOX4. PT REPORTING DISCOMFORT TO PARACENTESIS SITES DECREASED WITH X1 TYLENOL. NO NAUSEA/EMESIS. TOLERATING DIET, STRICT NPO AT 0900 R/T REPEAT EGD. INDEPENDENT IN ROOM, UP TO RESTROOM MUTLIPLE TIMES THIS SHIFT. NO ACUTE CHANGES OVER NIGHT. PT CURRENTLY RESTING WELL IN BED WITH CALL LIGHT IN REACH.
--- NOTE | 2020-08-27 14:35 | NUR ---
Spiritual care visit conducted. Patient is known to this fiction writer for nearly 30yrs. Patient is lying in bed and alert. Patient immediately tells me about her medical issues including a possible new diagnosis "some sort of stomach cancer." Patient is tearful and shares personal information. Patient also expresses her relief with the invitation of her parents to live with them while she is dealing with her health conditions as patient has been living at the [facility]. Patient has a Zoroastrianism raymundo that she leans into during difficult times. I provide gentle encouragement, therapeutic listening, companionship and prayer. Patient responds well and shows signs of increased hope and peace. I will continue to remain available to patient and family.
--- NOTE | 2020-08-27 15:30 | NUR ---
PT TRANSFERED TO [facility] FROM FLOOR VIA [facility]. History, Chart, Medications and Allergies reviewed before start of procedure. Lungs clear T/O to Auscultation. Patient confirms NPO status and agrees with scheduled surgery. Pre-Op teaching done. Pt verbalizes understanding.
--- NOTE | 2020-08-27 15:31 | NUR ---
PT LEFT FOR SURGERY AT 1520.
--- NOTE | 2020-08-27 15:59 | NUR ---
08/27/20 1559 Blas Branch See Anesthesia record PER DR DANG MONITOR INTACT WITH CONTINUOUS PULSE OXIMETRY AND INTERMITTENT BP. O2 VIA N/C INTACT THROUGHOUT SEDATION/PROCEDURE.
--- NOTE | 2020-08-27 17:09 | NUR ---
RECEIVED PT BACK FROM SURGERY AT AROUND 1700. PT WAS ABLE TO AMBULATE FROM THE GURNEY TO THE BATHROOM WITHOUT DIFFICULTY. PT PASSING GAS AND TOLERATING PO INTAKE. PT IS ALSO A/O.
--- NOTE | 2020-08-27 18:00 | NUR ---
SHIFT SUMMARY PT STATUS POST FOR EGD. GASTRIC ULCERS FOUND AND BIOPSIES TAKEN. PT TOLERATED PROCEDURE WELL AND IS AMBULATING TO THE BATHROOM WITH SBA AND TOLERATING PO INTAKE WELL. SLIGHTLY HYPERTENSIVE BUT CLOSE TO THE PT'S BASELINE. DYSPNEA ON EXERTION AND WHEEZES NOTED. WILL REPORT TO DEJA GUARDADO.
--- NOTE | 2020-08-28 04:37 | NUR ---
SHIFT SUMMARY PT RESTED WELL T/O NIGHT. AAOX4. ABD DISTENSION SLIGHTLY INCREASED FROM PREVIOUS SHIFT PER PT. ABD DISCOMFORT DECREASED WITH TYLENOL X1 THIS SHIFT. NO NAUSEA/EMESIS. TOLERATING SIPS WATER. INDEPENDENT IN ROOM. NO ACUTE CHANGES OVER NIGHT. PT CURRENTLY RESTING WELL IN BED WITH CALL LIGHT IN REACH.
[2020-08-28 16:09] LABS: CENTROMERE PATTERN >1:1280 (.)
--- NOTE | 2020-08-28 17:52 | NUR ---
SHIFT SUMMARY PT POD #1 FOR EGD. PT A/O X4; PLEASANT AND COOPERATIVE WITH CARE. IND IN THE ROOM. TREATED FOR PAIN X1 THIS SHIFT. REPORTS INCREASED ABD PAIN AND ABD HAS BECOME MORE DISTENDED THIS SHIFT. IV DC'D AND IV MEDICATIONS CHANGED TO PO. PT TO DC TOMORROW AND TO FOLLOW UP WITH DR. CHANDLER IN ONCOLOGY. VSS. WILL REPORT TO DEJA GUARDADO.
[2020-08-29 04:10] LABS: BASOPHILS ABSOLUTE AUTO 0.07 K/mm3 (0.00-0.23); BASOPHILS PERCENT AUTO 1 % (0-2); EOSINOPHILS PERCENT AUTO 2 % (0-6); Hematocrit 46.3 % (33.0-51.0); Hemoglobin 14.8 g/dL (11.5-16.0); IMMATURE GRAN ABSOLUTE AUTO 0.08 K/mm3 (0.00-0.10); IMMATURE GRAN PERCENT AUTO 1 % (0-1); LYMPHOCYTES ABSOLUTE AUTO 1.64 K/mm3 (0.84-5.20); LYMPHOCYTES PERCENT AUTO 13 % (21-46); MONOCYTES ABSOLUTE AUTO 1.29 K/mm3 (0.16-1.47); MONOCYTES PERCENT AUTO 10 % (4-13); Mean Corpuscular HGB 26.7 pg (26.0-34.0); Mean Corpuscular Volume 83 fL (80-100); Mean Platelet Volume 9.2 fL (9.1-12.4); NEUTROPHILS ABSOLUTE AUTO 9.32 K/mm3 (1.96-9.15); NEUTROPHILS PERCENT AUTO 73 % (41-73); Platelet Count 698 K/mm3 (150-400); RDW Coefficient Variation 13.9 % (11.7-14.2); RDW Standard Deviation 42.7 fL (35.1-46.3); Red Blood Cell Count 5.55 M/mm3 (3.80-5.20)
[2020-08-29 04:31] LABS: Alanine Aminotransfer (ALT/SGP 25 U/L (12-78); Albumin/Globulin Ratio 0.5 (0.8-1.8); Alk Phos 67 U/L (50-136); Anion Gap 5 mmol/L (6-16); Aspartate Aminotrans (AST/SGOT 23 U/L (12-37); Bilirubin, Total 0.2 mg/dL (0.1-1.0); Blood Urea Nitrogen 9 mg/dL (8-24); Bun/Creatinine Ratio 12.9 (12.0-20.0); CO2, Blood 29 mmol/L (21-32); Calcium, Blood 8.4 mg/dL (8.5-10.1); Chloride, Blood 105 mmol/L (98-108); Glomerular Filtration Rate >60 (60-); Glucose, Blood 105 mg/dL (70-99); Potassium, Blood 3.9 mmol/L (3.5-5.5); Sodium, Blood 139 mmol/L (136-145)
--- NOTE | 2020-08-29 04:40 | NUR ---
SHIFT SUMMARY: PT S/P EGD. A&O X4. VS WNL. PT C/O PRESSURE IN ABD AND MEDICATED ONCE WITH TYLENOL PER EMAR. PT INDEPENDENT IN ROOM. VOIDING WELL. TOLERATING PO & DENIES N/V. PLAN FOR POSSIBLE DISCHARGE TODAY AND FOR PT TO FOLLOW UP WITH DR. CHANDLER OUTPATIENT.
[2020-08-29] MEDS ORDERED: LACT10SY PO (11:37)
[2020-08-29] MEDS ORDERED: METO5A PO (11:39)
[2020-08-29] MEDS ORDERED: PANT40 PO (11:40)
[2020-08-29] MEDS ORDERED: SUCRALFATE PO (11:45)
[2020-08-29] MEDS ORDERED: ONDA4ODT MM (11:46)
--- NOTE | 2020-08-29 15:09 | NUR ---
DISCHARGE: PACKET PRINTED AND PT EDUCATED. IV ALREADY DC'D. MEDICATIONS FAXED TO [facility]. PT TO LEAVE UNIT WHEN RIDE HERE VIA WHEELCHAIR
--- NOTE | 2020-08-29 15:40 | NUR ---
PT LEFT UNIT AT 1530
== END 2020-08-29 15:30 | disposition home or self-care (01) | DRG 871 ==
LOC: ER 15:46 → ERHOLD 08-22 00:41 → SURS 08-22 00:41 → PCU 08-22 11:53 → SURS 08-25 00:35
PROVIDERS: Emergency Medicine; Family Medicine; Internal Medicine; Student in an Organized Health Care Education/Training Program; ADMIT Internal Medicine
PROC: 0W9G3ZX Drainage of Peritoneal Cavity, Percutaneous Approach, Diagnostic (ICD-10-PCS; 2020-08-22)
PROC: 0W9G3ZZ Drainage of Peritoneal Cavity, Percutaneous Approach (ICD-10-PCS; 2020-08-23)
PROC: 0W9G3ZZ Drainage of Peritoneal Cavity, Percutaneous Approach (ICD-10-PCS; 2020-08-26)
PROC: 0DB58ZX Excision of Esophagus, Via Natural or Artificial Opening Endoscopic, Diagnostic (ICD-10-PCS; principal; 2020-08-28)
PROC: 0DB68ZX Excision of Stomach, Via Natural or Artificial Opening Endoscopic, Diagnostic (ICD-10-PCS; 2020-08-28)
PROC: 0DJ08ZZ Inspection of Upper Intestinal Tract, Via Natural or Artificial Opening Endoscopic (ICD-10-PCS; 2020-08-28)
DX: A41.9 Sepsis, unspecified organism (principal); K65.2 Spontaneous bacterial peritonitis; J96.01 Acute respiratory failure with hypoxia; E87.2 Acidosis; K76.6 Portal hypertension; K25.3 Acute gastric ulcer without hemorrhage or perforation; R18.0 Malignant ascites; Z66 Do not resuscitate; Z20.822 Contact with and (suspected) exposure to COVID-19; G43.909 Migraine, unspecified, not intractable, without status migrainosus; H91.8X2 Other specified hearing loss, left ear; C80.1 Malignant (primary) neoplasm, unspecified; E03.9 Hypothyroidism, unspecified; E78.5 Hyperlipidemia, unspecified; I10 Essential (primary) hypertension; K74.60 Unspecified cirrhosis of liver; K20.90 Esophagitis, unspecified without bleeding; R13.10 Dysphagia, unspecified; K59.00 Constipation, unspecified; Z79.899 Other long term (current) drug therapy; Z91.040 Latex allergy status; Z87.891 Personal history of nicotine dependence; Z98.890 Other specified postprocedural states; Z79.82 Long term (current) use of aspirin
CPT/HCPCS: 36415; 49082; 49083; 71045; 71260; 74181; 80053; 80061; 80069; 80074; 81001; 82042; 82103; 82105; 82150; 82378; 82390; 82728; 82945; 83516; 83605; 83615; 83690; 83986; 84157; 84311; 84478; 85014; 85018; 85025; 85027; 86038; 86160; 86225; 86235; 86301; 86304; 87040; 87070; 87075; 87086; 87205; 87206; 88305; 88341; 88342; 89051; 94760; 94762; 96361-59; 96365-59; 96375-59; 99284-25; A9270; C9113; J0696; J0780; J1650; J2001; J2250; J2405; J2704; J2765; J3010; J7030; J7050; J7120; P9041; Q9967; U0004

== ENCOUNTER 2020-08-31 15:24 | Inpatient (IN) | payer MEDICARE, OTHER ==
[~2020-08-31] VITALS: Ht 154.9 cm; Wt 84.8 kg
[~2020-08-31 15:24] MED LIST changes: +LACT10SY PO; +METO5A PO; +ONDA4ODT MM; +PANT40 PO; +SUCRALFATE PO
[2020-08-31 16:52] LABS: BASOPHILS ABSOLUTE AUTO 0.06 K/mm3 (0.00-0.23); BASOPHILS PERCENT AUTO 0 % (0-2); EOSINOPHILS ABSOLUTE AUTO 0.03 K/mm3 (0.00-0.68); EOSINOPHILS PERCENT AUTO 0 % (0-6); Hematocrit 46.5 % (33.0-51.0); Hemoglobin 14.9 g/dL (11.5-16.0); IMMATURE GRAN ABSOLUTE AUTO 0.14 K/mm3 (0.00-0.10); IMMATURE GRAN PERCENT AUTO 1 % (0-1); LYMPHOCYTES ABSOLUTE AUTO 1.38 K/mm3 (0.84-5.20); LYMPHOCYTES PERCENT AUTO 7 % (21-46); MONOCYTES PERCENT AUTO 13 % (4-13); Mean Corpuscular HGB 26.3 pg (26.0-34.0); Mean Corpuscular Volume 82 fL (80-100); Mean Platelet Volume 9.7 fL (9.1-12.4); NEUTROPHILS ABSOLUTE AUTO 15.37 K/mm3 (1.96-9.15); NEUTROPHILS PERCENT AUTO 79 % (41-73); Platelet Count 827 K/mm3 (150-400); RDW Standard Deviation 41.9 fL (35.1-46.3); Red Blood Cell Count 5.66 M/mm3 (3.80-5.20); White Blood Cell Count 19.48 K/mm3 (4.00-11.30)
[2020-08-31 17:21] LABS: Alanine Aminotransfer (ALT/SGP 16 U/L (12-78); Albumin, Blood 2.3 g/dL (3.4-5.0); Albumin/Globulin Ratio 0.5 (0.8-1.8); Alk Phos 83 U/L (50-136); Anion Gap 10 mmol/L (6-16); Aspartate Aminotrans (AST/SGOT 19 U/L (12-37); Bilirubin, Total 0.4 mg/dL (0.1-1.0); Blood Urea Nitrogen 12 mg/dL (8-24); Bun/Creatinine Ratio 19.2 (12.0-20.0); CO2, Blood 20 mmol/L (21-32); Calcium, Blood 9.1 mg/dL (8.5-10.1); Chloride, Blood 106 mmol/L (98-108); Creatinine, Blood 0.63 mg/dL (0.40-1.00); Glomerular Filtration Rate >60 (60-); Glucose, Blood 109 mg/dL (70-99); Potassium, Blood 4.3 mmol/L (3.5-5.5); Sodium, Blood 136 mmol/L (136-145); Total Protein, Blood 7.3 g/dL (6.4-8.2)
[2020-08-31 21:20] LABS: Automated BF RBC Count 0.002 M/mm3 (0-0); Body Fluid WBC Count 3170 /mm3 (0-999)
[2020-08-31 21:41] LABS: Appearance, Body Fluid Hazy (Clear); Color, Body Fluid Yellow (None-Yellow); Total Cell Count, Body Fluid 100
--- NOTE | 2020-09-01 07:24 | NUR ---
SHIFT SUMMARY PT WAS A NEW ADMIT DURING THE NIGHT, ARRIVING ON THE FLOOR AT 0043. SHE WAS ADMITTED FOR BACTERIAL PERITONITIS. SHE IS A&O X 4, KNIK, SBA IN THE ROOM. VITAL SIGNS STABLE. SHE WAS MEDICATED THIS AM FOR A LOPEZ, AND REPORTED ABD CRAMPS. NO C/O NAUSEA OR SOB. PT RECEIVING NS @ 75 ML/HR. NO ACUTE CHANGES IN PT CONDITION NOTED SINCE ADMIT. REPORT GIVEN TO ONCOMING RN.
[2020-09-01 08:20] LABS: BASOPHILS ABSOLUTE AUTO 0.03 K/mm3 (0.00-0.23); BASOPHILS PERCENT AUTO 0 % (0-2); EOSINOPHILS ABSOLUTE AUTO 0.05 K/mm3 (0.00-0.68); EOSINOPHILS PERCENT AUTO 0 % (0-6); Hematocrit 37.6 % (33.0-51.0); IMMATURE GRAN PERCENT AUTO 1 % (0-1); LYMPHOCYTES ABSOLUTE AUTO 1.09 K/mm3 (0.84-5.20); LYMPHOCYTES PERCENT AUTO 9 % (21-46); MONOCYTES ABSOLUTE AUTO 1.76 K/mm3 (0.16-1.47); MONOCYTES PERCENT AUTO 14 % (4-13); Mean Corpuscular HGB 26.5 pg (26.0-34.0); Mean Corpuscular HGB Conc 31.9 g/dL (31.5-36.5); Mean Corpuscular Volume 83 fL (80-100); NEUTROPHILS ABSOLUTE AUTO 9.64 K/mm3 (1.96-9.15); NEUTROPHILS PERCENT AUTO 76 % (41-73); Platelet Count 539 K/mm3 (150-400); RDW Coefficient Variation 14.1 % (11.7-14.2); RDW Standard Deviation 42.9 fL (35.1-46.3); Red Blood Cell Count 4.52 M/mm3 (3.80-5.20); White Blood Cell Count 12.67 K/mm3 (4.00-11.30)
[2020-09-01 08:51] LABS: Alanine Aminotransfer (ALT/SGP 13 U/L (12-78); Albumin, Blood 2.3 g/dL (3.4-5.0); Albumin/Globulin Ratio 0.6 (0.8-1.8); Alk Phos 66 U/L (50-136); Anion Gap 6 mmol/L (6-16); Aspartate Aminotrans (AST/SGOT 8 U/L (12-37); Bilirubin, Total 0.4 mg/dL (0.1-1.0); Blood Urea Nitrogen 8 mg/dL (8-24); Bun/Creatinine Ratio 14.2 (12.0-20.0); CO2, Blood 26 mmol/L (21-32); Calcium, Blood 8.2 mg/dL (8.5-10.1); Chloride, Blood 105 mmol/L (98-108); Creatinine, Blood 0.57 mg/dL (0.40-1.00); Globulin, Blood 3.8 g/dL (2.2-4.0); Glomerular Filtration Rate >60 (60-); Glucose, Blood 94 mg/dL (70-99); Potassium, Blood 3.8 mmol/L (3.5-5.5); Sodium, Blood 137 mmol/L (136-145); Total Protein, Blood 6.1 g/dL (6.4-8.2)
--- NOTE | 2020-09-01 13:07 | NUR ---
Spiritual care visit conducted. Patient is lying in bed and immediately tells me about how scared she is. She says that her last visit (a week or so age) she was diagnosed with cancer and that more areas of cancer where yesterday. She also talked about the painful procedure that was done and that she hopes to be able to see an oncologist soon so she could know what she is dealing with. Patient also very unsure about her livig arrangements. [facility] and then her mother invited her to live with her and her father but there were family unit complictions that made that living situation more work than it is worth for her. I provide gentle housing counselor and prayer. Patient responds well and displays evidence of increased peace. Spiritual care will remain available as patient is assisted with the emotional/spiritual aspects of living with disease.
--- NOTE | 2020-09-01 17:17 | NUR ---
SHIFT SUMMARY PATIENT REPORTS ABDOMINAL PAIN BUT HAS DECLINED PAIN MEDICATION THUS FAR THIS SHIFT. DENIES NAUSEA AND SHORTNESS OF BREATH. UP SBA TO BR. DR. CHANDLER CONSULTED, NEW ORDERS FOR SURGICAL CONSULT FOR MEDIPORT PLACEMENT TO BEGIN CHEMO. PATIENT'S MOTHER VISITED THIS AFTERNOON. HOLD BLOODTHINNERS FOR PROCEDURE TOMORROW. PARACENTESIS POSTPONED UNTIL TOMORROW DUE TO LOVENOX ADMINISTRATION THIS AM. PALLIATIVE AND SPIRITUAL CARE MET WITH PATIENT TODAY FOR SUPPORT REGARDING HER NEW CANCER DIAGNOSIS.
--- NOTE | 2020-09-01 18:29 | NUR ---
Initial palliative visit made today. Pt is aleart and oriented, pleasand and oriented. She smiles and laughs often throughout our visit. She tells me she was just told this am she has stage 4 cancer. She states she feels afraid, maybe a little about dying, and also leaving her family. [facility], but planning to move in with her stepmom upon discharge from the hospital. She is having a port placed tomorrow. Will see her again tomorrow, hopeful to have a more in depth converation then.
[2020-09-02 01:18] LABS: SARS-Cov-2 (COVID-19) PCR, MMC NEGATIVE (NEGATIVE)
--- NOTE | 2020-09-02 04:56 | NUR ---
SHIFT SUMMARY ASSUMED CARE OF PT AT 1900. PT IS A/OX4. HEART SOUNDS REGULAR, TELE MONITOR SAID PT BECAME TACKY INTO THE 130S WHEN SHE GOT UP TO THE BATHROOM. LUNG SOUNDS ARE SEVERLY DIMINISHED IN THE BASES. ABD IS DISTENDED AND FIRM, PT COMPLAINS OF FEELING BLOATED. PT WAS CONTIENENT TO THE BATHROOM. PT HAS BEEN NPO SINCE MIDNIGHT. CALL LIGHT IN REACH, BED IN LOWEST POSITON.
[2020-09-02 05:46] LABS: Hematocrit 41.3 % (33.0-51.0); Mean Corpuscular HGB 26.1 pg (26.0-34.0); Mean Corpuscular HGB Conc 31.5 g/dL (31.5-36.5); Mean Corpuscular Volume 83 fL (80-100); Platelet Count 544 K/mm3 (150-400); RDW Coefficient Variation 14.2 % (11.7-14.2); RDW Standard Deviation 42.4 fL (35.1-46.3); Red Blood Cell Count 4.98 M/mm3 (3.80-5.20); White Blood Cell Count 13.82 K/mm3 (4.00-11.30)
[2020-09-02 06:28] LABS: Alanine Aminotransfer (ALT/SGP 10 U/L (12-78); Albumin, Blood 2.1 g/dL (3.4-5.0); Albumin/Globulin Ratio 0.5 (0.8-1.8); Alk Phos 70 U/L (50-136); Anion Gap 9 mmol/L (6-16); Aspartate Aminotrans (AST/SGOT 5 U/L (12-37); Bilirubin, Total 0.3 mg/dL (0.1-1.0); Blood Urea Nitrogen 5 mg/dL (8-24); Bun/Creatinine Ratio 9.5 (12.0-20.0); CO2, Blood 22 mmol/L (21-32); Calcium, Blood 8.4 mg/dL (8.5-10.1); Chloride, Blood 107 mmol/L (98-108); Creatinine, Blood 0.52 mg/dL (0.40-1.00); Globulin, Blood 3.9 g/dL (2.2-4.0); Glomerular Filtration Rate >60 (60-); Glucose, Blood 108 mg/dL (70-99); Potassium, Blood 3.6 mmol/L (3.5-5.5); Sodium, Blood 138 mmol/L (136-145)
--- NOTE | 2020-09-02 10:56 | NUR ---
TRANSFER TO PCU PATIENT TRANSFERED TO PCU AFTER MEDIPORT INSERTION PROCEDURE. REPORT BUCK FLEMING RN.
--- NOTE | 2020-09-02 12:08 | NUR ---
NURSING PCU DAYSHIFT: Assumed care of pt at approx 1020. Arrived from PACU via gurney accompanied by RN and RT. A/O, pleasant, cooperative w/care, mildly TLINGIT & HAIDA. Skin fragile though intact w/mild scattered bruising, new mediport to RCW w/sterile dressing in place C/O 08/15 abd pain r/t distention. General weakness though able to stand/xfer w/SBA. Tele in place, ST 120's, no c/o CP/pressure, no noted edema, pulses palp. L/S w/fine bibasilar crackles, O2 stat low 90's on 6L NC, respirations shallow and rapid, dyspnea w/minimal exertion. Abd distended/firm, tender w/mild palpitation, BT+, voids w/o difficulty per pt. PIV x1, LR infusing at time of arrival from PACU. Pt denies any current needs or questions regarding plan of care. Update provided to PMD. Spoke w/chemo RN for administration this afternoon. No s/s of acute distress, report given to peer RN to assume care, call light in reach.
--- NOTE | 2020-09-02 12:42 | NUR ---
ASSUMED PATIENT CARE. PATIET ALERT AND ORIENTED, COOPERATIVE WITH CARE. THIS RN AGREES WITH PREVIOUS SHIFT ASSESSMENT BY BERNADETTE RN. PT ON NASAL CANNULA, ABLE TO TITRATE DOWN TO 2 L. NO SIGNS OF ACUTE DISTRESS, WCTM.
--- NOTE | 2020-09-02 15:44 | NUR ---
Spiritual care visit conducted. Patient tells me about how difficult the installation of the mediport was and her concerns about her upcoming procedures. Patient is tearful and gets increasingly emotional when she shares about the family unit complications. Patient talks about and dying and the magda she anticipates having at the reunion in [facility] when she sees her the loved ones that have gone before her (according to patient's belief system). I normalize patient's fears and emotions and provide gentle hiv counselor, anxiety containment and prayer. Patient responds well and, at least for the moment, has an elevated mood and is able to smile and joke around. I will continue to remain available to patient and family.
--- NOTE | 2020-09-02 16:11 | NUR ---
REPORT GIVEN TO BERNADETTE GUARDADO.
--- NOTE | 2020-09-02 17:08 | NUR ---
NURSING PCU DAYSHIFT SUMMARY: No significant changes t/o the shift. Pt to u/s for paracentesis, 3.3L removed, albumin ordered to infuse post para. Mediport site remains stable, cleared by surgeon that port okay to use for chemo as ordered. Chemo RN currently at bedside for port access and IV chemo administration. PMD updated on pt condition. Pt changed to medical status w/o tele, awaiting bed assignment. Pt denies any current needs or questions regarding plan of care. Cont to monitor until rpt is given to NOC RN.
[2020-09-03 03:47] LABS: BASOPHILS ABSOLUTE AUTO 0.02 K/mm3 (0.00-0.23); BASOPHILS PERCENT AUTO 0 % (0-2); EOSINOPHILS PERCENT AUTO 0 % (0-6); Hematocrit 37.9 % (33.0-51.0); Hemoglobin 11.9 g/dL (11.5-16.0); IMMATURE GRAN PERCENT AUTO 1 % (0-1); LYMPHOCYTES ABSOLUTE AUTO 0.64 K/mm3 (0.84-5.20); LYMPHOCYTES PERCENT AUTO 5 % (21-46); MONOCYTES ABSOLUTE AUTO 0.29 K/mm3 (0.16-1.47); MONOCYTES PERCENT AUTO 2 % (4-13); Mean Corpuscular HGB 25.9 pg (26.0-34.0); Mean Corpuscular HGB Conc 31.4 g/dL (31.5-36.5); Mean Corpuscular Volume 83 fL (80-100); Mean Platelet Volume 9.8 fL (9.1-12.4); NEUTROPHILS ABSOLUTE AUTO 13.32 K/mm3 (1.96-9.15); NEUTROPHILS PERCENT AUTO 93 % (41-73); Platelet Count 556 K/mm3 (150-400); RDW Coefficient Variation 14.2 % (11.7-14.2); RDW Standard Deviation 43.1 fL (35.1-46.3); Red Blood Cell Count 4.59 M/mm3 (3.80-5.20); White Blood Cell Count 14.37 K/mm3 (4.00-11.30)
[2020-09-03 04:10] LABS: Alanine Aminotransfer (ALT/SGP 11 U/L (12-78); Albumin, Blood 2.3 g/dL (3.4-5.0); Albumin/Globulin Ratio 0.7 (0.8-1.8); Alk Phos 61 U/L (50-136); Anion Gap 5 mmol/L (6-16); Aspartate Aminotrans (AST/SGOT 9 U/L (12-37); Bilirubin, Total 0.2 mg/dL (0.1-1.0); Blood Urea Nitrogen 4 mg/dL (8-24); Bun/Creatinine Ratio 10.5 (12.0-20.0); CO2, Blood 25 mmol/L (21-32); Calcium, Blood 7.9 mg/dL (8.5-10.1); Chloride, Blood 109 mmol/L (98-108); Creatinine, Blood 0.38 mg/dL (0.40-1.00); Globulin, Blood 3.4 g/dL (2.2-4.0); Glomerular Filtration Rate >60 (60-); Glucose, Blood 166 mg/dL (70-99); Potassium, Blood 3.6 mmol/L (3.5-5.5); Sodium, Blood 139 mmol/L (136-145); Total Protein, Blood 5.7 g/dL (6.4-8.2)
--- NOTE | 2020-09-03 05:54 | NUR ---
LARD RENDERER SUMMARY PT IS AXO X4. PT HAS MAINTAINED O2 SATS >92% ON 2L VIA NC THIS SHIFT. BP WNL AND STABLE. PT HAS REMIANED AFEBRILE WITH A PEAK TEMP OF 98.1. PT HAS DENIED ANY NAUSEA OR STOMACH PAIN THIS SHIFT. WILL REPORT TO ONCOMING RN.
--- NOTE | 2020-09-03 11:53 | NUR ---
Spiritual care visit conducted. Patient is resting but easily awakens to the sound of her name. Patient talks about how eventful her day was yesterday and shares about how overwhelming it all is. She tells me that she is unclear whether she had Chemotherapy yesterday but she says, "I think so." She tells me her concerns about living with her parents (father and step-mother) but ends her thought by saying that she really does not have any other option. I provide therapeutic listening, companionship and prayer. Patient responds well and shows signs of elevated hope.
[2020-09-03] MEDS ORDERED: ZYRTEC10 M1 PO (17:07)
[2020-09-03] MEDS ORDERED: CEFD300 PO (17:09)
[2020-09-03] MEDS ORDERED: Percocet 5-3251 EACH PO (17:09)
--- NOTE | 2020-09-03 18:13 | NUR ---
PT'S MEDIPORT DEACCESSED WITH HEPARIN FLUSH. NO ACTIVE BLEEDING FROM SITE. PT EXPRESSED UNDERSTANDING OF NEW MEDICATION AND D/C MEDICATION REGIMEN BUT STST THAT SHE WILL NOT BE FILLING HER RX UNTIL TOMORROW
== END 2020-09-03 17:58 | disposition home or self-care (01) | DRG 356 ==
LOC: ER 15:24 → MEDS 23:06 → ERHOLD 23:06 → MEDS 09-01 00:42 → PCU 09-02 10:13
PROVIDERS: Emergency Medicine; Internal Medicine; Physician Assistant; Surgery; ADMIT Internal Medicine
PROC: 0W9G3ZZ Drainage of Peritoneal Cavity, Percutaneous Approach (ICD-10-PCS; 2020-09-02)
PROC: 0JH60WZ Insertion of Totally Implantable Vascular Access Device into Chest Subcutaneous Tissue and Fascia, Open Approach (ICD-10-PCS; 2020-09-02)
PROC: 02HV33Z Insertion of Infusion Device into Superior Vena Cava, Percutaneous Approach (ICD-10-PCS; 2020-09-02)
PROC: 3E03305 Introduction of Other Antineoplastic into Peripheral Vein, Percutaneous Approach (ICD-10-PCS; principal; 2020-09-02 07:30)
DX: C78.6 Secondary malignant neoplasm of retroperitoneum and peritoneum (principal); K65.2 Spontaneous bacterial peritonitis; J96.01 Acute respiratory failure with hypoxia; R18.0 Malignant ascites; C53.0 Malignant neoplasm of endocervix; K25.9 Gastric ulcer, unspecified as acute or chronic, without hemorrhage or perforation; Z20.822 Contact with and (suspected) exposure to COVID-19; I10 Essential (primary) hypertension; E78.5 Hyperlipidemia, unspecified; E03.9 Hypothyroidism, unspecified; G43.909 Migraine, unspecified, not intractable, without status migrainosus; H91.92 Unspecified hearing loss, left ear; K20.90 Esophagitis, unspecified without bleeding; Z59.0 Homelessness; Z98.890 Other specified postprocedural states; Z91.040 Latex allergy status; Z79.82 Long term (current) use of aspirin; Z79.899 Other long term (current) drug therapy; Z87.891 Personal history of nicotine dependence
CPT/HCPCS: 36415; 49083; 77001; 80053; 83690; 83735; 85025; 85027; 87070; 87075; 87205; 89051; 94660; 94761; 94762; 96365-59; 96372; 96375-59; 99284-25; A9270; C1788; J0696; J1100; J1642; J1650; J2250; J2270; J2370; J2405; J2704; J3010; J7030; J7050; J7060; J7120; J9045; J9267; P9046; U0004

== ENCOUNTER 2021-01-18 07:51 | Day surgery (SDC) | payer MEDICARE, OTHER ==
[~2021-01-18] VITALS: Ht 154.9 cm; Wt 76.9 kg
[~2021-01-18 07:51] MED LIST changes: +CEFD300 PO; +ZYRTEC10 M1 PO
== END 2021-01-18 10:10 | disposition home or self-care (01) ==
LOC: ORSCSDS 07:51
PROVIDERS: Student in an Organized Health Care Education/Training Program
PROC: 0DB48ZX Excision of Esophagogastric Junction, Via Natural or Artificial Opening Endoscopic, Diagnostic (ICD-10-PCS; principal; 2021-01-18 09:15)
PROC: 0DB98ZX Excision of Duodenum, Via Natural or Artificial Opening Endoscopic, Diagnostic (ICD-10-PCS; principal; 2021-01-18 09:15)
PROC: 0DB68ZX Excision of Stomach, Via Natural or Artificial Opening Endoscopic, Diagnostic (ICD-10-PCS; principal; 2021-01-18 09:15)
DX: R10.12 Left upper quadrant pain (principal); K27.9 Peptic ulcer, site unspecified, unspecified as acute or chronic, without hemorrhage or perforation; K31.7 Polyp of stomach and duodenum; I10 Essential (primary) hypertension; E78.5 Hyperlipidemia, unspecified; Z79.899 Other long term (current) drug therapy
CPT/HCPCS: 88305; 88342; J2704; J7120

== ENCOUNTER 2021-03-15 19:27 | Inpatient (IN) | payer MEDICARE, OTHER ==
[~2021-03-15] VITALS: Ht 157.5 cm; Wt 75.7 kg
[2021-03-15 20:02] LABS: BASOPHILS ABSOLUTE AUTO 0.04 K/mm3 (0.00-0.23); BASOPHILS PERCENT AUTO 0 % (0-2); EOSINOPHILS ABSOLUTE AUTO 0.16 K/mm3 (0.00-0.68); EOSINOPHILS PERCENT AUTO 1 % (0-6); Hematocrit 33.9 % (33.0-51.0); Hemoglobin 10.3 g/dL (11.5-16.0); IMMATURE GRAN ABSOLUTE AUTO 0.06 K/mm3 (0.00-0.10); IMMATURE GRAN PERCENT AUTO 1 % (0-1); LYMPHOCYTES ABSOLUTE AUTO 2.86 K/mm3 (0.84-5.20); LYMPHOCYTES PERCENT AUTO 22 % (21-46); MONOCYTES ABSOLUTE AUTO 1.22 K/mm3 (0.16-1.47); MONOCYTES PERCENT AUTO 10 % (4-13); Mean Corpuscular HGB 27.2 pg (26.0-34.0); Mean Corpuscular HGB Conc 30.4 g/dL (31.5-36.5); Mean Corpuscular Volume 90 fL (80-100); Mean Platelet Volume 9.5 fL (9.1-12.4); NEUTROPHILS ABSOLUTE AUTO 8.46 K/mm3 (1.96-9.15); NEUTROPHILS PERCENT AUTO 66 % (41-73); Platelet Count 459 K/mm3 (150-400); RDW Coefficient Variation 15.4 % (11.7-14.2); RDW Standard Deviation 50.8 fL (35.1-46.3); Red Blood Cell Count 3.78 M/mm3 (3.80-5.20)
[2021-03-15 20:23] LABS: Albumin, Blood 3.2 g/dL (3.4-5.0); Albumin/Globulin Ratio 0.6 (0.8-1.8); Bilirubin, Total 0.2 mg/dL (0.1-1.0); Bun/Creatinine Ratio 21.4 (12.0-20.0); Calcium, Blood 9.7 mg/dL (8.5-10.1); Creatinine, Blood 1.03 mg/dL (0.40-1.00); Globulin, Blood 5.2 g/dL (2.2-4.0); Potassium, Blood 4.1 mmol/L (3.5-5.5); Total Protein, Blood 8.4 g/dL (6.4-8.2)
[2021-03-15 22:59] LABS: Influenza A, PCR NEGATIVE (NEGATIVE); Influenza B, PCR NEGATIVE (NEGATIVE); Resp Syncytial Virus, PCR NEGATIVE (NEGATIVE); SARS-Cov-2 (COVID-19) PCR, MMC NEGATIVE (NEGATIVE)
[2021-03-15 23:33] LABS: Hematocrit 30.9 % (33.0-51.0); Hemoglobin 9.5 g/dL (11.5-16.0)
[2021-03-16 01:31] LABS: Source, Urine Voided
[2021-03-16 01:37] LABS: Bilirubin, Urine Neg (Neg); Blood, Urine 5+ (Neg); Glucose Qualitative, Urine Neg (Neg); Ketones, Urine 1+ (Neg); Leukocyte Esterase, Urine 3+ (Neg); Nitrite, Urine Neg (Neg); Protein, Urine 3+ (Neg); Specific Gravity, Urine 1.015 (1.003-1.022); Urobilinogen, Urine NORM (Normal)
[2021-03-16 01:44] LABS: Appearance, Urine Hazy (Clear); Bacteria Many /hpf; Color, Urine Red (P-Yellow); Squamous Epithelial Cells Not Seen /hpf (Few); White Blood Cells, Urine TNTC /hpf (0-5)
[2021-03-16 01:45] LABS: BASOPHILS ABSOLUTE AUTO 0.04 K/mm3 (0.00-0.23); BASOPHILS PERCENT AUTO 0 % (0-2); EOSINOPHILS ABSOLUTE AUTO 0.02 K/mm3 (0.00-0.68); EOSINOPHILS PERCENT AUTO 0 % (0-6); Hematocrit 25.8 % (33.0-51.0); IMMATURE GRAN ABSOLUTE AUTO 0.07 K/mm3 (0.00-0.10); IMMATURE GRAN PERCENT AUTO 0 % (0-1); LYMPHOCYTES ABSOLUTE AUTO 1.51 K/mm3 (0.84-5.20); LYMPHOCYTES PERCENT AUTO 9 % (21-46); MONOCYTES ABSOLUTE AUTO 1.32 K/mm3 (0.16-1.47); MONOCYTES PERCENT AUTO 8 % (4-13); Mean Corpuscular HGB 28.2 pg (26.0-34.0); Mean Corpuscular Volume 91 fL (80-100); Mean Platelet Volume 9.6 fL (9.1-12.4); NEUTROPHILS PERCENT AUTO 82 % (41-73); Platelet Count 339 K/mm3 (150-400); RDW Coefficient Variation 15.6 % (11.7-14.2); RDW Standard Deviation 52.5 fL (35.1-46.3); Red Blood Cell Count 2.84 M/mm3 (3.80-5.20); White Blood Cell Count 16.46 K/mm3 (4.00-11.30)
[2021-03-16 02:04] LABS: Albumin, Blood 2.8 g/dL (3.4-5.0); Albumin/Globulin Ratio 0.7 (0.8-1.8); Bilirubin, Total 0.3 mg/dL (0.1-1.0); Bun/Creatinine Ratio 20.5 (12.0-20.0); Calcium, Blood 8.6 mg/dL (8.5-10.1); Creatinine, Blood 1.12 mg/dL (0.40-1.00); Globulin, Blood 3.9 g/dL (2.2-4.0); Potassium, Blood 4.3 mmol/L (3.5-5.5); Total Protein, Blood 6.7 g/dL (6.4-8.2)
[2021-03-16 08:44] LABS: Hemoglobin 7.2 g/dL (11.5-16.0)
--- NOTE | 2021-03-16 11:12 | NUR ---
PAIN MEDICATIONS PT REPORTED FEELING DIZZY WHEN GIVEN 25 MCG FENTANYL IV, DENIED N/V, BP IMPROVING. WILL CTM
--- NOTE | 2021-03-16 13:32 | NUR ---
Patient is lying in bed and alert. Pt tells me that she is missing the PET scan today because she was admitted to the hospital. This causes her anxiety because she is fearful about the cancer spreading and wants to know the status of things. The fear of the unknown is harder for her then the things she does know. She also explains about the challenges that she is enduring from her father at home. He has Alzheimer's disease and he creates a toxic environment for her. She shares about other family unit complications as well. I listen empathically and provide pastoral rehabilitation services counselor, anxiety containment and prayer. Patient responds well and shows signs of increased peace. I will continue to remain available to assist pt with the emotional/spiritual needs that arise due to medical issues.
--- NOTE | 2021-03-17 05:11 | NUR ---
ALERT AND ORIENTED X4. NPO AT MN. VOIDED USING THE COMMODE. CONTINUES TO HAVE BLOOD IN URINE, HAD SOME LOOSE BM. PAIN MED YOBANI ONCE.
[2021-03-17 05:31] LABS: Hematocrit 25.5 % (33.0-51.0); Hemoglobin 7.9 g/dL (11.5-16.0); Mean Corpuscular HGB 28.2 pg (26.0-34.0); Mean Corpuscular Volume 91 fL (80-100); Mean Platelet Volume 9.9 fL (9.1-12.4); Platelet Count 290 K/mm3 (150-400); RDW Coefficient Variation 15.7 % (11.7-14.2); RDW Standard Deviation 53.1 fL (35.1-46.3)
[2021-03-17 05:56] LABS: Bun/Creatinine Ratio 10.6 (12.0-20.0); Calcium, Blood 8.5 mg/dL (8.5-10.1); Creatinine, Blood 1.13 mg/dL (0.40-1.00); Potassium, Blood 3.8 mmol/L (3.5-5.5)
[2021-03-17 12:39] LABS: Hematocrit 26.3 % (33.0-51.0); Hemoglobin 8.2 g/dL (11.5-16.0)
--- NOTE | 2021-03-17 14:34 | NUR ---
Patient tells me that she may DC today. She explains that she is feeling better and that she will have to follow-up at [facility]. She tells me that she is feeling less anxious but still struggles at times. I provide gentle student success counselor, anxiety containment and prayer. Patient responds well and shows signs of reduced stress. I will continue to remain available to patient and family.
--- NOTE | 2021-03-17 18:18 | NUR ---
SUMMARY: NO ACUTE CHANGE TODAY. VSS, A/O, TELE STABLE. PT REPORTS "SLIGHT DIZZINESS WHEN UP TO COMMODE. SCANT VAGINAL BLEED, RONAK PAD CHANGED X2. URINE IS BLOOD TINGED. PT MEDICATED WITH PERCOCET TONIGHT FOR RLQ ABD PAIN. DR. THOMPSON IN ROOM THIS AFTERNOON. PLAN IS CONTINUED IV ANTIBIOTICS AND POSSIBLE DC TOMORROW MORNING. WILL CTM AND REPORT TO DEJA GUARDADO.
--- NOTE | 2021-03-18 04:35 | NUR ---
PT HAD A GOOD NIGHT. VOIDING TO THE COMMODE, SCAN BLOOD IN URINE. PAIN PILL WAS GIVEN. NEW IV STARTED.
[2021-03-18 05:20] LABS: Bun/Creatinine Ratio 12.6 (12.0-20.0); Calcium, Blood 9.1 mg/dL (8.5-10.1); Creatinine, Blood 1.19 mg/dL (0.40-1.00); Potassium, Blood 4.2 mmol/L (3.5-5.5)
--- NOTE | 2021-03-18 10:34 | NUR ---
pt. discharged to home. plan is to go see her doctor in [place] today. dc instructions given, personal belongings sent. w/c to exit, friends here to take her to doctor appt. in [place].
== END 2021-03-18 10:30 | disposition home or self-care (01) | DRG 862 ==
LOC: ER 19:27 → SURS 23:41
PROVIDERS: Emergency Medicine; Internal Medicine; Physician Assistant; ADMIT Internal Medicine
DX: T81.43XA Infection following a procedure, organ and space surgical site, initial encounter (principal); A41.9 Sepsis, unspecified organism; N17.9 Acute kidney failure, unspecified; D62 Acute posthemorrhagic anemia; E87.2 Acidosis; E03.9 Hypothyroidism, unspecified; I10 Essential (primary) hypertension; E78.5 Hyperlipidemia, unspecified; Z85.41 Personal history of malignant neoplasm of cervix uteri; Z91.040 Latex allergy status; Z98.890 Other specified postprocedural states; G43.909 Migraine, unspecified, not intractable, without status migrainosus; Z87.891 Personal history of nicotine dependence; Z53.29 Procedure and treatment not carried out because of patient's decision for other reasons
CPT/HCPCS: 0241U; 36415; 36430; 74176; 80048; 80053; 81001; 83605; 84484; 85014; 85018; 85025; 85027; 86850; 86900; 86901; 86923; 87040; 87086; 93005; 93010; 96365; 99285-25; A9270; J2543; J3010; J7030; P9016

== ENCOUNTER → 2021-08-26 | Outpatient (CLI) | payer MEDICARE, OTHER ==
[2021-08-27 15:10] LABS: HPV 16 Negative (Negative); HPV 18 Negative (Negative); HPV OTHER HR TYPES Positive (Negative)
== END | disposition home or self-care (01) ==
LOC: LAB 13:34 → LAB SHORT 13:34
PROVIDERS: Nurse Practitioner
DX: Z12.4 Encounter for screening for malignant neoplasm of cervix (principal)
CPT/HCPCS: 87624; G0123

== ENCOUNTER 2022-10-12 05:45 | Day surgery (SDC) | payer MEDICARE, OTHER ==
[2022-10-12] VITALS (9 sets, daily range): BP systolic 100–131; BP diastolic 58–89
[~2022-10-12] VITALS: Ht 156 cm; Wt 78.2 kg
[2022-10-12] MEDS ORDERED: LEVSOD25 PO (06:25)
[2022-10-12] MEDS ORDERED: TRAZ50 PO (06:26)
[2022-10-12] MEDS ORDERED: ALBU90OI INH (06:27)
[2022-10-12] MEDS ORDERED: TOPI50 PO (06:27)
[2022-10-12] MEDS ORDERED: Prilosec Otc20 MG PO (06:28)
--- NOTE | 2022-10-12 07:39 | NUR ---
Ambulatory in Day Surgery History, Chart, Medications and Allergies reviewed before start of procedure.Patient confirms NPO status and agrees with scheduled surgery. Patient reports completing Chlorhexadine shower X2 prior to admission to hospital.Surgical site prepped with 2% Chlorhexidine cloth wipe. Patient States Post-Procedure ride home has been arranged.
== END 2022-10-12 10:18 | disposition home or self-care (01) ==
LOC: ORSCMMR 05:45 → ORD 07:30 → ORSCMMR 10:18
PROVIDERS: Surgery
PROC: 0WUF0JZ Supplement Abdominal Wall with Synthetic Substitute, Open Approach (ICD-10-PCS; principal; 2022-10-12 07:30)
DX: K43.0 Incisional hernia with obstruction, without gangrene (principal); I10 Essential (primary) hypertension; E03.9 Hypothyroidism, unspecified; K21.9 Gastro-esophageal reflux disease without esophagitis; J45.909 Unspecified asthma, uncomplicated; Z87.891 Personal history of nicotine dependence; E78.5 Hyperlipidemia, unspecified; Z79.899 Other long term (current) drug therapy; I50.9 Heart failure, unspecified; Z85.41 Personal history of malignant neoplasm of cervix uteri; F43.10 Post-traumatic stress disorder, unspecified
CPT/HCPCS: A9270; C1781; J0690; J2250; J2704; J3010; J7120

== ENCOUNTER 2023-03-23 09:42 | Day surgery (SDC) | payer MEDICARE, OTHER ==
[~2023-03-23] VITALS: Ht 154.9 cm; Wt 72.3 kg
[~2023-03-23 09:42] MED LIST changes: +ALBU90OI; +Balanced Salt Epinephrine Irrigation Solution 500 mL IR SCH; +CALCIUM CARBONATE PO; +Lidocaine HCl/Pf 1% 5 ML VIAL XX SCH; +MELATONIN10 M6 PO; +Moxifloxacin HCL 0.5 MG/0.1 ML 0.4MLSYR RIGHTEYE SCH; +NS 500 ML IV ONE; +PHENYLEPHRINE\\TROPICAMIDE\\TETRACAINE OPHTHALMIC DILATING SOLN RIGHTEYE PRN; +Povidone-Iodine 450 DROP/30 ML Solution ONE; +Povidone-Iodine 450 DROP/30 ML Solution RIGHTEYE SCH; +Prilosec Otc20 MG PO; +TRAZ50 PO; +TYLENOL PR; +Triamcinolone Inj Susp 40 MG / ML 1ML Vial INJ SCH; +Triamcinolone Inj Susp 40 MG / ML 1ML Vial ONE; +VOLTAREN ARTHRI20 GM TOP
[2023-03-23] MEDS ORDERED: FentaNYL Citrate 50 MCG/ML 2 ML Injection ONE (10:03)
[2023-03-23] MEDS ORDERED: Midazolam HCl 1MG / ML 2ML Vial ONE (10:03)
[2023-03-23] MEDS ORDERED: NS 500 ML IV ONE (10:20)
[2023-03-23] MEDS ORDERED: Tetracaine HCl 0.5% Opth Soln 15 ml RIGHTEYE ONE (10:26)
[2023-03-23 11:10] VITALS: BP 112/85
== END 2023-03-23 11:04 | disposition home or self-care (01) ==
LOC: ORSCSDS 09:42
PROVIDERS: Ophthalmology
PROC: 08RJ3JZ Replacement of Right Lens with Synthetic Substitute, Percutaneous Approach (ICD-10-PCS; principal; 2023-03-23 11:00)
DX: H25.13 Age-related nuclear cataract, bilateral (principal); I10 Essential (primary) hypertension; K21.9 Gastro-esophageal reflux disease without esophagitis; F43.10 Post-traumatic stress disorder, unspecified; F32.A Depression, unspecified; E03.9 Hypothyroidism, unspecified; E78.5 Hyperlipidemia, unspecified; Z87.891 Personal history of nicotine dependence; Z79.899 Other long term (current) drug therapy
CPT/HCPCS: J2250; J3010; J3301; J7040; V2632

== ENCOUNTER 2023-03-30 09:27 | Day surgery (SDC) | payer MEDICARE, OTHER ==
[~2023-03-30] VITALS: Ht 154.9 cm; Wt 77.0 kg
[~2023-03-30 09:27] MED LIST changes: +Moxifloxacin HCL 0.5 MG/0.1 ML 0.4MLSYR LEFTEYE SCH; -Moxifloxacin HCL 0.5 MG/0.1 ML 0.4MLSYR RIGHTEYE SCH; +PHENYLEPHRINE\\TROPICAMIDE\\TETRACAINE OPHTHALMIC DILATING SOLN LEFTEYE PRN; -PHENYLEPHRINE\\TROPICAMIDE\\TETRACAINE OPHTHALMIC DILATING SOLN RIGHTEYE PRN; +Povidone-Iodine 450 DROP/30 ML Solution LEFTEYE SCH; -Povidone-Iodine 450 DROP/30 ML Solution RIGHTEYE SCH
[2023-03-30] MEDS ORDERED: NS 500 ML IV ONE (10:05)
[2023-03-30] MEDS ORDERED: Midazolam HCl 1MG / ML 2ML Vial ONE (10:29)
[2023-03-30] MEDS ORDERED: FentaNYL Citrate 50 MCG/ML 2 ML Injection ONE (10:29)
[2023-03-30] MEDS ORDERED: Tetracaine HCl 0.5% Opth Soln 15 ml XX ONE (11:03)
[2023-03-30 11:19] VITALS: BP 106/78
--- NOTE | 2023-03-30 11:38 | NUR ---
03/30/23 1138 Amaury Acosta PT REPORTED 8/10 PAIN IN L EYE. SHE REFUSED TYLENOL AND OPTED TO RTETURN HOME TO USE OTC MEDICATIONS TO CONTROL PAIN. SHE DESCRIBED PAIN TOLERABLE. FLACC 0/10.
== END 2023-03-30 11:33 | disposition home or self-care (01) ==
LOC: ORSCSDS 09:27
PROVIDERS: Ophthalmology
PROC: 08RK3JZ Replacement of Left Lens with Synthetic Substitute, Percutaneous Approach (ICD-10-PCS; principal; 2023-03-30 11:00)
DX: H25.12 Age-related nuclear cataract, left eye (principal); Z96.1 Presence of intraocular lens; I10 Essential (primary) hypertension; F32.A Depression, unspecified; K21.9 Gastro-esophageal reflux disease without esophagitis; F43.10 Post-traumatic stress disorder, unspecified; Z87.891 Personal history of nicotine dependence; E03.9 Hypothyroidism, unspecified; E66.9 Obesity, unspecified; Z68.32 Body mass index [BMI] 32.0-32.9, adult; Z79.899 Other long term (current) drug therapy
CPT/HCPCS: J2250; J3010; J3301; J7040; V2632

== ENCOUNTER 2023-08-17 10:27 | Emergency (ER) | payer MEDICARE, OTHER ==
[~2023-08-17] VITALS: Ht 154.9 cm; Wt 75.8 kg
[~2023-08-17 10:27] MED LIST changes: -Balanced Salt Epinephrine Irrigation Solution 500 mL IR SCH; -Lidocaine HCl/Pf 1% 5 ML VIAL XX SCH; -Moxifloxacin HCL 0.5 MG/0.1 ML 0.4MLSYR LEFTEYE SCH; -NS 500 ML IV ONE; -PHENYLEPHRINE\\TROPICAMIDE\\TETRACAINE OPHTHALMIC DILATING SOLN LEFTEYE PRN; -Povidone-Iodine 450 DROP/30 ML Solution LEFTEYE SCH; -Povidone-Iodine 450 DROP/30 ML Solution ONE; -Triamcinolone Inj Susp 40 MG / ML 1ML Vial INJ SCH; -Triamcinolone Inj Susp 40 MG / ML 1ML Vial ONE
[2023-08-17 10:37] VITALS: BP 136/103
== END 2023-08-17 11:05 | disposition home or self-care (01) ==
LOC: ER 10:27
DX: L03.311 Cellulitis of abdominal wall (principal); E03.9 Hypothyroidism, unspecified; I10 Essential (primary) hypertension; E78.5 Hyperlipidemia, unspecified; G43.909 Migraine, unspecified, not intractable, without status migrainosus; W57.XXXA Bitten or stung by nonvenomous insect and other nonvenomous arthropods, initial encounter; Z87.891 Personal history of nicotine dependence; Z91.040 Latex allergy status; Z91.048 Other nonmedicinal substance allergy status; Z79.899 Other long term (current) drug therapy
CPT/HCPCS: 99282